=== PATIENT | male | born 1955 | race Caucasian/White ===

== ENCOUNTER 2019-10-21 02:53 | Inpatient (IN) | payer MEDICARE ==
[2019-10-21] MEDS ORDERED: Albuterol/Ipratropium NEB.SOL* Albuterol 2.5 MG/Ipratropium 0.5 MG 3 ML ONE (03:13)
[2019-10-21] MEDS ORDERED: Magnesium Sulfate 2 GM IV* 2 GM/50 ML BAG IVPB ONE (03:14)
[2019-10-21] MEDS ORDERED: Lactated Ringers 1000 ML Bag* 1,000 ML IV ONE ×2 (03:14→03:16)
[2019-10-21] MEDS ORDERED: Dexamethasone IV* 4 MG/ML 5 ML VIAL (20 MG) IVPB ONE (03:14)
--- NOTE | 2019-10-21 03:30 | ED ---
Influenza-Like Illness - HPI Summary HPI Summary: This pt is a 64 Y/O M presenting to [facility] with a CC of influenza-like symptoms. He states that he got his influenza vaccine in May. He was watching his nephew for a couple of days when he had the flu and then the pt became sick as well. He states that he has had a persistent cough for the past week and is currently SOB and has a fever with chills. He denies any CP or N/V. He states that there have been no alleviating factors for his symptoms and states that the Advair has not been helping much throughout the day. He states that his condenser at home was increasing his headache and states that he was unable to use it. He has a PMHx of chronic asthma and DM type 2 that is controlled with diet. He states that he has no SHx of smoking. He denies any PMHx of DVTs or blood disorders in his family. - History of Current Complaint Chief Complaint: EDRespiratoryDistress Time Seen by Provider: 10/21/19 03:04 Hx Obtained From: Patient Onset/Duration: Sudden Onset, Lasting Weeks - 1, Still Present Severity: Moderate Associated Signs & Symptoms: Negative - CP or N/V, Fever, Nasal Congestion, Headache Related Hx: Possible Flu/Infectious Exposure - nephew - Allergy/Home Medications Allergies/Adverse Reactions: Allergies Allergy/AdvReac Type Severity Reaction Status Date / Time No Known Allergies Allergy Verified 10/21/19 03:02 Home Medications: Home Medications Fluticasone-Salmeterol 250-50* [Advair Diskus 250-50*] 2 inh INH BID 10/21/19 [ History Confirmed 10/21/19] PMH/Surg Hx/FS Hx/Imm Hx Previously Healthy: Yes Endocrine/Hematology History: Reports: Hx Diabetes - type 2 Cardiovascular History: Denies: Hx Hypertension Respiratory History: Reports: Hx Asthma - Cancer History Hx Chemotherapy: No Hx Radiation Therapy: No - Surgical History Surgical History: None - Immunization History Date of Influenza Vaccine: May 2019 Immunizations Up to Date: Yes Infectious Disease History: No Infectious Disease History: Denies: Traveled Outside the [place] in Last 30 Days - Family History Known Family History: Positive: Diabetes - Social History Occupation: Retired Lives: Alone Alcohol Use: None Hx Substance Use: No Substance Use Type: Reports: None Hx Tobacco Use: No Smoking Status (MU): Never Smoked Tobacco Review of Systems Positive: Fever, Chills Negative: Chest Pain Positive: Shortness Of Breath Negative: Vomiting, Nausea Positive: Headache All Other Systems Reviewed And Are Negative: Yes Physical Exam - Summary Physical Exam Summary: Constitutional: Well-developed, Well-nourished, Alert. (-) Distressed, diaphoretic Skin: Warm, Dry HENT: Normocephalic; Atraumatic Eyes: Conjunctiva normal Neck: Musculoskeletal ROM normal neck. (-) JVD, (-) Stridor, (-) Tracheal deviation Cardio: Rhythm regular, rate tachycardic, Heart sounds normal; Intact distal pulses; The pedal pulses are 2+ and symmetric. Radial pulses are 2+ and symmetric. labored breathing, Pulmonary/Chest wall: Effort tachypnic, (-) Respiratory distress, (-) Wheezes, ( -) Rales Abd: Soft, (-) tenderness, obese stomach, (-) Guarding, (-) Rebound Musculoskeletal: Chronic venous stasis hyperpigmentation, 1+ bilateral pitting edema Neuro: Alert, Oriented x3 Psych: Mood and affect Normal Triage Information Reviewed: Yes Vital Signs On Initial Exam: Initial Vitals Temp Pulse Resp BP Pulse Ox 96.9 F 129 22 111/73 86 10/21/19 03:02 10/21/19 03:02 10/21/19 03:02 10/21/19 03:02 10/21/19 03:02 Vital Signs Reviewed: Yes Procedures - Sedation Patient Received Moderate/Deep Sedation with Procedure: No Diagnostics - Vital Signs Vital Signs Temp Pulse Resp BP Pulse Ox 10/21/19 03:02 96.9 F 129 22 111/73 86 - Laboratory Result Diagrams: 10/21/19 03:28 10/21/19 03:28 Lab Statement: Any lab studies that have been ordered have been reviewed, and results considered in the medical decision making process. - Radiology CXR Radiology Interpretation Completed By: ED Physician Summary of Radiographic Findings: Diffuse patchiness, R lung has lots of cloudiness that could be hiding in consolidation. Bilateral pleural effusion. Pending offical review. - EKG 0410 Cardiac Rate: Tachycardia - 120 BPM EKG Rhythm: Sinus Tachycardia Summary of EKG Findings: An EKG at 0410 reveals sinus tachycardia at 120 BPM with prolonged QTc at 482. Motion artifact limits reading with a Nonspecific EKG , no STEMI. Interpreted by Dr. Esteban at 0412 10/21/2019. Re-Evaluation - Re-Evaluation First Eval Re-Evaluation Time: 05:10 Change: Unchanged Comment: Pt's blood pressure was mannually taken. He was told of the current POC and is agreeable to addmittance to [facility] for further treatments. Flu Symptom Course/Dx - Course Course Of Treatment: This pt is a 64 Y/O M presenting to [facility] with a CC of influenza-like symptoms. He states that he got his influenza vaccine in May. He was watching his nephew for a couple of days when he had the flu and then the pt became sick as well. He states that he has had a persistent cough for the past week and is currently SOB and has a fever with chills. He denies any CP or N/V. His PE found Chronic venous stasis hyperpigmentation, 1+ bilateral pitting edema. He currently has no wheezing on the exam. He is also tachypnic, tachycardic, diaphoretic, obese stomach, labored breathing, and awake. CXR: Diffuse patchiness, R lung has lots of cloudiness that could be hiding in consolidation. Bilateral pleural effusion. She has abnormal laboratory values in the following test results: WBC, RBC, APTT, INR 1.8, VBG pH of 7.31, VBG pCO2 of 54, VBG pO2 of 96, VBG O2 Saturation of 98.9. An EKG at 0410 reveals sinus tachycardia at 120 BPM with prolonged QTc at 482. Motion artifact limits reading with a Nonspecific EKG, no STEMI. Due to his previous lab tests and tachycardia in conjunction with a troponin of .24 and BNP of 481, the pt does meet sepsis criteria. He will not be treated aggresively with fluids for his tachycardia and possible sepsis due to a potential new onset of CHF and the ability for fluid overload. He has a blood pressure of 98/69. He will be admitted to Dr. Akers, hospitalist, for further treatment and work up. He will be diagnosed with COPD exacerbation secondary to PNA, new onset CHF, and sepsis. - Diagnoses Provider Diagnoses: COPD exacerbation, PNA (pneumonia), New onset of congestive heart failure, Sepsis - Physician Notifications Discussed Care Of Patient With: Meir Akers Time Discussed With Above Provider: 05:10 Instructed by Provider To: Admit As Inpatient Admit/Transition Orders Completed By ED Provider: Yes Discharge ED - Sign-Out/Discharge Documenting (check all that apply): Patient Departure - admitted - Discharge Plan Condition: Good Disposition: ADMITTED TO [facility] Referrals: Butch Moore MD [Primary Care Provider] - - Billing Disposition and Condition Condition: GOOD Disposition: Admitted to [facility] - Attestation Statements Document Initiated by Scribe: Yes Documenting Scribe: Yoseph Jolley Provider For Whom Scribe is Documenting (Include Credential): Jason Esteban MD Scribe Attestation: Yoseph Salinas, scribed for Jason Esteban MD on 10/21/19 at 0602. Scribe Documentation Reviewed: Yes Provider Attestation: The documentation as recorded by the [facility] [place] accurately reflects the service I personally performed and the decisions made by me, Jason Esteban MD Status of Scribe Document: Viewed
[2019-10-21 03:44] LABS: Hematocrit 56 % (42-52); Hemoglobin 18.8 g/dL (14.0-18.0); Mean Corpuscular HGB Conc 33 g/dL (31-36); Mean Corpuscular Hemoglobin 29 pg (27-31); Mean Corpuscular Volume 88 fL (80-94); Mean Platelet Volume 9.1 fL (7.4-10.4); Platelet Count 251 10^3/uL (150-450); Red Blood Count 6.41 10^6 /uL (4.18-5.48); Red Cell Distribution Width 16 % (10-15); White Blood Count 33.9 10^3/uL (3.5-10.8)
[2019-10-21 03:54] LABS: Activated Partial Thrombo Time 38.8 seconds (26.0-38.0); INR 1.81 (0.82-1.09)
[2019-10-21] MEDS ORDERED: cefTRIAXone(*) 1 GM in NS 0.9% 50 ML* 50 ML IVPB ONE (03:54)
[2019-10-21] MEDS ORDERED: Azithromycin 500 mg/250 ml NS 500 MG/250 ML BAG IVPB ONE (03:54)
[2019-10-21 04:01] LABS: Troponin I 0.24 ng/mL (<0.03)
[2019-10-21 04:22] LABS: Anion Gap 13 mmol/L (2-11); CO2 Carbon Dioxide 27 mmol/L (22-32); Calcium 9.3 mg/dL (8.6-10.3); Chloride 97 mmol/L (101-111); Potassium 3.8 mmol/L (3.5-5.0); Sodium 137 mmol/L (135-145)
[2019-10-21 04:26] LABS: ABS Lymphocytes 0.6 10^3/ul (1.0-4.8); ABS Monocytes 2.3 10^3/ul (0-0.8); Lymphocyte % 1.8 %
[2019-10-21 04:28] LABS: BUN/Creatinine Ratio 18.9 (8-20); Blood Urea Nitrogen 18 mg/dL (6-24); EGFR Non-African American 79.3 (>60); Glucose 137 mg/dL (70-100)
[2019-10-21] MEDS ORDERED: Lactated Ringers 1000 ML Bag* 1,000 ML IV SCH (06:00)
[2019-10-21] MEDS ORDERED: Albuterol/Ipratropium NEB.SOL* Albuterol 2.5 MG/Ipratropium 0.5 MG 3 ML INH PRN (06:12)
[2019-10-21] MEDS ORDERED: Ondansetron INJ* 2 MG/ML VIAL IV PRN (06:12)
[2019-10-21] MEDS ORDERED: Acetaminophen TAB* 325 MG PO PRN (06:12)
[2019-10-21] MEDS: Albuterol/Ipratropium NEB.SOL* Albuterol 2.5 MG/Ipratropium 0.5 MG 3 ML INH SCH ×5 (06:30→11:23)
--- NOTE | 2019-10-21 06:35 | HP ---
History of Present Illness - History of Present Illness Reason for Visit: SOB, Cough, leg swelling History of Present Illness: 64 yo Male with PMHx significant for Morbid obesity, Chronic persistent Asthma, diabetes 2 controlled with diet and no medication presented with worsening SOB, fever, wheezing for the past 1- 2weeks. Said he was baby sitting his grandchild who had the Flu and 2 days he and his got the flu as well. He has persistent cough and SOB for the past 1 week. There was associated fever which has subsided. He denied nausea, vomiting, chest pain. He said he noticed increased swelling of his legs and cough is persistent. he has been using his inhaler more without relief. He denied ever smoked. - Past Medical History Pulmonary: Asthma Endocrine: Other - Prediabetes - Past Surgical History Past Surgical History: Cholecystectomy - Past Family History Family History: Cancer, Other - Dad--Alcoholic, smoker; Mom Lung cancer, Bone cancer, Sister and brother --Alcoholics - Past Social History Smoke: No Alcohol: Rare Drugs: None Lives: With Family Domestic Violence: Negative Review of Systems - Measurements Intake and Output: Intake and Output Last 24 Hours 10/18/19 10/19/19 10/20/19 10/21/19 06:59 06:59 06:59 06:59 Weight 122.47 kg - Review of Systems Constitutional Symptoms: Positive: Fever Dermatology: Positive: Normal HEENT: Positive: Normal Eyes: Positive: Normal Thyroid: Positive: Normal Pulmonary: Positive: Cough, Wheezing, Shortness of Breath, Asthma Cardiology: Positive: Shortness of Breath, Edema Gastroenterology: Positive: Normal Genital - Urinary: Negative: Hematuria, Polyuria Genitourinary - Male: Negative: Prostatism Endocrinology: Positive: Obesity Hematologic/Lymphatic: Negative: Anemia Neurology: Negative: Diplopia, Dizziness, Change in Speech, Change in Walking Psychiatry: Negative: Depression, Anxiety Allergic/Immunologic: Positive: Asthma Objective Active Medications: Acetaminophen (Tylenol Tab*) 650 mg PO Q4H PRN PRN Reason: PAIN - MILD Albuterol/Ipratropium (Duoneb (Albuterol 2.5 Mg/Ipratropium 0.5 Mg)) 1 neb INH Q20M [facility] Albuterol/Ipratropium (Duoneb (Albuterol 2.5 Mg/Ipratropium 0.5 Mg)) 1 neb INH [id number] AWAKE PRN PRN Reason: sob/wheexing Docusate Sodium (Colace Cap*) 100 mg PO BID [facility] Heparin Sodium (Porcine) (Heparin Vial(*)) 5,000 units SUBCUT Q8HR [facility] Lactated Ringer's (Lactated Ringers 1000 Ml Bag*) 1,000 mls @ 75 mls/hr IV PER RATE [facility] Azithromycin (Zithromax 500 Mg/250 Ml) 500 mg in 250 mls @ 250 mls/hr IVPB Q24H [facility] Ceftriaxone Sodium 1 gm/ (Sodium Chloride) 50 mls @ 100 mls/hr IVPB Q24H [facility] Sodium Chloride (Ns 0.9% 1000 Ml) 1,000 mls @ 75 mls/hr IV PER RATE [facility] Ondansetron HCl (Zofran Inj*) 4 mg IV Q4H PRN PRN Reason: NAUSEA/VOMITING Fluticasone/Salmeterol (Advair Diskus 250-50*) puff INH BID [facility] Vital Signs - 8 hr 10/21/19 10/21/19 10/21/19 03:01 03:02 03:27 Temperature 96.9 F Pulse Rate 129 128 Respiratory 20 22 19 Rate Blood Pressure 111/73 111/73 (mmHg) O2 Sat by Pulse 86 87 Oximetry 10/21/19 10/21/19 10/21/19 03:28 03:34 03:37 Temperature Pulse Rate 126 126 123 Respiratory 24 19 21 Rate Blood Pressure 100/69 88/68 96/69 (mmHg) O2 Sat by Pulse 89 88 91 Oximetry 10/21/19 10/21/19 10/21/19 03:52 04:01 04:26 Temperature Pulse Rate 120 120 119 Respiratory 21 52 20 Rate Blood Pressure 92/69 98/69 (mmHg) O2 Sat by Pulse 91 90 90 Oximetry 10/21/19 10/21/19 10/21/19 05:01 05:28 05:44 Temperature Pulse Rate 120 117 Respiratory 17 20 19 Rate Blood Pressure 98/63 93/63 (mmHg) O2 Sat by Pulse 89 91 Oximetry 10/21/19 10/21/19 05:58 06:00 Temperature Pulse Rate 115 114 Respiratory 16 24 Rate Blood Pressure 93/64 (mmHg) O2 Sat by Pulse 90 91 Oximetry Appearance: Obese, awake, alert, in respiratory distress Eyes: No Scleral Icterus, PERRLA Ears/Nose/Mouth/Throat: NL Teeth, Lips, Gums, Mucous Membranes Moist Neck: NL Appearance and Movements; NL JVP, No Thyroid Enlargement, Masses Respiratory: Symmetrical Chest Expansion and Respiratory Effort, - - decreased breath sounds, bibasilar crackles, mild wheezing Cardiovascular: NL Sounds; No Murmurs; No JVD, RRR Abdominal: NL Sounds; No Tenderness; No Distention, No Hepatosplenomegaly, - - Obese Lymphatic: No Cervical Adenopathy Extremities: No Clubbing, Cyanosis Skin: No Rash or Ulcers Neurological: Alert and Oriented x 3 Result Diagrams: 10/21/19 03:28 10/21/19 03:28 Assess/Plan/Problems-Billing Assessment: 64 yo Male with PMHx significant for Morbid obesity, Chronic persistent Asthma, diabetes 2 controlled with diet and no medication presented with: - Patient Problems (1) CHF (congestive heart failure) Current Visit: Yes Status: Acute Code(s): I50.9 - HEART FAILURE, UNSPECIFIED SNOMED Code(s): 67154453 Comment: Admit medicine--tele Cardiac enzymes; elevated trops probably due to demand ischemia Echocardiogram Will hold diuresis for now--patient dehydrated with soft/low BP Will start diuresis when patient stabilizes, Will monitor Daily weighing FU AM lab Cardiology consult (2) Asthma exacerbation attacks Current Visit: Yes Status: Acute Comment: Duonebs as needed for SOB/wheezing c/w home inhaler (3) Pneumonia and influenza Current Visit: Yes Status: Acute Comment: Will start IV Ceftriaxone 1 g daily and IV Azithromycin to cover the atypicals FU AM lab and trend wbc (4) Diabetes Current Visit: Yes Status: Acute Code(s): E11.9 - TYPE 2 DIABETES MELLITUS WITHOUT COMPLICATIONS SNOMED Code(s): 64829730 Comment: ISS Diabetic diet and exercise FU HgbA1C (5) Obesities, morbid Current Visit: Yes Status: Acute Code(s): E66.01 - MORBID (SEVERE) OBESITY DUE TO EXCESS CALORIES SNOMED Code(s): 695719779 Comment: Diet and exercise reiterated (6) Full code status Current Visit: Yes Status: Acute Code(s): Z78.9 - OTHER SPECIFIED HEALTH STATUS SNOMED Code(s): 589387660 (7) DVT prophylaxis Current Visit: Yes Status: Acute Code(s): Z29.9 - ENCOUNTER FOR PROPHYLACTIC MEASURES, UNSPECIFIED SNOMED Code(s): 269775557 Comment: Heparin Status and Disposition: Admit to medicine--Tele Fair
[2019-10-21 07:02] LABS: Influenza A Molecular Negative (Negative); Influenza B Molecular Negative (Negative)
[2019-10-21] MEDS: Docusate CAP* 100 MG PO SCH ×2 (08:56→20:13)
[2019-10-21] MEDS: Heparin VIAL(*) 5000 UNITS/ML VIAL (FIVE THOUSAND) SUBCUT SCH ×3 (08:56→20:13)
[2019-10-21] MEDS ORDERED: Mometasone/Formoter 200/5 MDI INH SCH (09:00)
--- NOTE | 2019-10-21 10:45 | PN ---
Subjective Date of Service: 10/21/19 Interval History: Patient reports that he is has had worsening shortness of breath since exposure to sick grandchild approx. 2 weeks ago. Patient reports uses oxygen at home as needed. Patient reports that he manages at home with Advair and albuterol inhaler for which he orders from [place]. Reports that he uses albuterol inhaler as needed but sometimes up to 10 times a day. Denies chest pain. Denies n/v/d, denies abd pain . Patient is refusing medications and breathing treatments. Patient refusing ABG after several discussions on need for ABG. Has threatened to leave AMA several times today. Requesting to have home inhalers at the bedside. Patient is currently requiring 15 liters of 02 via face mask, is able to speak in full sentences and does not have any work of breathing at this time. Labs reviewed from this AM- patient severe sepsis as evidence by hypotension on admission, elevated wbc's. tachycardia and known source of pneumonia.- was given azithromycin and ceftriaxone - lactic acid ordered Family History: Unchanged from Admission Social History: Unchanged from Admission Past Medical History: Unchanged from Admission Objective Active Medications: Acetaminophen (Tylenol Tab*) 650 mg PO Q4H PRN PRN Reason: PAIN - MILD Albuterol/Ipratropium (Duoneb (Albuterol 2.5 Mg/Ipratropium 0.5 Mg)) 1 neb INH RT.[id number] AWAKE PRN PRN Reason: sob/wheexing Docusate Sodium (Colace Cap*) 100 mg PO BID [facility] Last Admin: 10/21/19 08:56 Dose: Not Given Heparin Sodium (Porcine) (Heparin Vial(*)) 5,000 units SUBCUT Q8HR [facility] Last Admin: 10/21/19 08:56 Dose: Not Given Azithromycin (Zithromax 500 Mg/250 Ml) 500 mg in 250 mls @ 250 mls/hr IVPB Q24H [facility] Ceftriaxone Sodium 1 gm/ (Sodium Chloride) 50 mls @ 100 mls/hr IVPB Q24H [facility] Sodium Chloride (Ns 0.9% 1000 Ml) 1,000 mls @ 75 mls/hr IV PER RATE [facility] Mometasone Furoate/Formoterol Fumar (Dulera 200/5 Mdi*) 2 puff INH BID [facility] Ondansetron HCl (Zofran Inj*) 4 mg IV Q4H PRN PRN Reason: NAUSEA/VOMITING Vital Signs - 8 hr 10/21/19 10/21/19 10/21/19 03:01 03:02 03:27 Temperature 96.9 F Pulse Rate 129 128 Respiratory 20 22 19 Rate Blood Pressure 111/73 111/73 (mmHg) O2 Sat by Pulse 86 87 Oximetry 10/21/19 10/21/19 10/21/19 03:28 03:34 03:37 Temperature Pulse Rate 126 126 123 Respiratory 24 19 21 Rate Blood Pressure 100/69 88/68 96/69 (mmHg) O2 Sat by Pulse 89 88 91 Oximetry 10/21/19 10/21/19 10/21/19 03:52 04:01 04:26 Temperature Pulse Rate 120 120 119 Respiratory 21 52 20 Rate Blood Pressure 92/69 98/69 (mmHg) O2 Sat by Pulse 91 90 90 Oximetry 10/21/19 10/21/19 10/21/19 05:01 05:28 05:44 Temperature Pulse Rate 120 117 Respiratory 17 20 19 Rate Blood Pressure 98/63 93/63 (mmHg) O2 Sat by Pulse 89 91 Oximetry 10/21/19 10/21/19 10/21/19 05:58 06:00 06:13 Temperature Pulse Rate 115 114 115 Respiratory 16 24 21 Rate Blood Pressure 93/64 99/66 (mmHg) O2 Sat by Pulse 90 91 90 Oximetry 10/21/19 10/21/19 10/21/19 06:28 06:31 06:44 Temperature Pulse Rate 115 113 114 Respiratory 14 21 20 Rate Blood Pressure 97/64 107/66 (mmHg) O2 Sat by Pulse 90 89 89 Oximetry 10/21/19 10/21/19 10/21/19 06:59 07:00 07:14 Temperature Pulse Rate 115 111 112 Respiratory 22 17 23 Rate Blood Pressure 109/61 99/63 (mmHg) O2 Sat by Pulse 92 91 91 Oximetry 10/21/19 10/21/19 10/21/19 07:29 07:41 07:44 Temperature Pulse Rate 109 111 112 Respiratory 23 18 16 Rate Blood Pressure 88/65 96/65 89/64 (mmHg) O2 Sat by Pulse 90 91 92 Oximetry 10/21/19 10/21/19 10/21/19 07:46 07:58 08:00 Temperature Pulse Rate 110 107 107 Respiratory 15 21 22 Rate Blood Pressure 110/70 100/65 (mmHg) O2 Sat by Pulse 92 91 92 Oximetry 10/21/19 10/21/19 08:20 08:30 Temperature 98.4 F 97.5 F Pulse Rate 111 112 Respiratory 17 22 Rate Blood Pressure 100/65 112/76 (mmHg) O2 Sat by Pulse 92 91 Oximetry Oxygen Devices in Use Now: Simple Face Mask Appearance: alert, sitting in his hospital with o2 via face mask, no respirtory distress Eyes: No Scleral Icterus Ears/Nose/Mouth/Throat: Clear Oropharnyx, Mucous Membranes Moist Neck: NL Appearance and Movements; NL JVP Respiratory: Symmetrical Chest Expansion and Respiratory Effort, - - exp. wheezes in the upper lobes, very diminished lower lobes bilat Cardiovascular: NL Sounds; No Murmurs; No JVD Abdominal: NL Sounds; No Tenderness; No Distention Extremities: No Clubbing, Cyanosis, - - bilat lower legs with +2 pitting edema Skin: No Rash or Ulcers Neurological: Alert and Oriented x 3 Nutrition: Taking PO's Result Diagrams: 10/21/19 03:28 10/21/19 03:28 Assess/Plan/Problems-Billing Assessment: 64 yo Male with PMHx significant for Morbid obesity, Chronic persistent Asthma, diabetes 2 controlled with diet and no medication presented with: - Patient Problems (1) Sepsis Current Visit: Yes Status: Acute Comment: severe sepsis related to underlying pneumonia as evidence by elevated WBC's, tachycardia, hypoxia and known source of bilat PNA, elevated troponin, hypotension on arrival to ER - will continue IVF - conitnue ceftriaxone and azithromycin - blood cultures pending - will send urine for legionella and strep (2) Pneumonia and influenza Current Visit: Yes Status: Acute Comment: with hypoxic respirtory failure requiring o2 at 15 liters will titrate as able conitnue IV Ceftriaxone 1 g daily and IV Azithromycin - blood cultures - urine for legionella and strep - patient met severe sepsis on admission -lactic acid ordered and elevated- 3.4 - ivf fluid bolus given 30cc/kg- will trend lactic acid - will repeat CBC in the AM - contiue o2 as needed for maintian sats at 90-92% (3) Elevated troponin Current Visit: Yes Status: Acute Code(s): R79.89 - OTHER SPECIFIED ABNORMAL FINDINGS OF BLOOD CHEMISTRY SNOMED Code(s): 678140762 Comment: Likely related to demand ischemia from underlying severe sepsis from bilat pneumonia - CTA - negative for PE, showed bilat PNA right greater than left - will give ASA 324mg - cardiology consulted - will trend troponins and repeat EKG in the AM (4) Asthma exacerbation attacks Current Visit: Yes Status: Acute Comment: Duonebs as needed for SOB/wheezing - continue home inhaler - o2 as needed - ABG ordered - refused (5) Diabetes Current Visit: Yes Status: Acute Code(s): E11.9 - TYPE 2 DIABETES MELLITUS WITHOUT COMPLICATIONS SNOMED Code(s): 43200698 Comment: will monitor - consistent carbohydrate diet (6) Obesities, morbid Current Visit: Yes Status: Acute Code(s): E66.01 - MORBID (SEVERE) OBESITY DUE TO EXCESS CALORIES SNOMED Code(s): 131322544 Comment: Diet and exercise reiterated (7) DVT prophylaxis Current Visit: Yes Status: Acute Code(s): Z29.9 - ENCOUNTER FOR PROPHYLACTIC MEASURES, UNSPECIFIED SNOMED Code(s): 817915836 Comment: Heparin (8) Full code status Current Visit: Yes Status: Acute Code(s): Z78.9 - OTHER SPECIFIED HEALTH STATUS SNOMED Code(s): 288430577 Status and Disposition: Admit to medicine--Tele Fair
[2019-10-21] MEDS ORDERED: Albuterol HFA INHALER* 8 gm MDI INH PRN (11:00)
[2019-10-21] MEDS ORDERED: FLUTICASONE SALMETEROL INH SCH (11:09)
[2019-10-21 11:22] LABS: ALT 24 U/L (7-52); AST 22 U/L (13-39); Albumin 3.7 g/dL (3.2-5.2); Alkaline Phosphatase 125 U/L (34-104); Globulin 3.6 g/dL (2-4); Indirect Bilirubin 1.1 mg/dL (0.3-1.0); Total Protein 7.3 g/dL (6.4-8.9)
[2019-10-21] MEDS ORDERED: SODIUM CHLORIDE IV ONE (11:45)
[2019-10-21] MEDS ORDERED: [UNRECOGNIZED DRUG - OTHER] IV ONE (11:45)
[2019-10-21 12:30] LABS: C Reactive Protein 308.32 mg/L (<8.01)
--- NOTE | 2019-10-21 12:46 | ECHO ---
*[facility]* [place] [address] Fax #: [phone] Transthoracic Echocardiogram Patient: Daniel Mackey : 1955 Study Date: 10/21/2019 Age: 64 Gender: M HR: 107 bpm Height: 70 in /177.8 cm BSA: 2.38 m^2 Weight: 272.4 lb /123.8 kg BMI: 39.2 kg/m^2 *Yard Pipe Grader: * Kassidy Okeefe RDCS RN *Referring Physician: * Meir Akers *Reading Physician: * Krzysztof Lopez MD Indications: Congestive Heart Failure. History: Asthma. Obstructive sleep apnea. Risk factors: Diabetes mellitus. Morbidly obese. Conclusions Summary: - Procedure narrative: The study was technically limited due to body habitus and limited positioning. The patient refused the use of Definity to enhance imaging. - Left ventricle: Systolic function is at the lower limits of normal. The estimated ejection fraction is 50-55%. Regional wall motion abnormalities cannot be excluded due to poor apical imaging without Definity. - Right ventricle: The cavity size is mildly to moderately dilated in some views. Wall thickness is moderately increased. Systolic function is low normal. - Mitral valve: There is no significant regurgitation. - Aortic valve: There is no evidence of stenosis. - Tricuspid valve: There is trace regurgitation. - Pulmonary arteries: Systolic pressure cannot be accurately estimated. - Compared to study of 09/26/10, the left ventricle function appears the same. THe right ventricle dilation is new. Study data: Transthoracic echocardiogram. Procedure: Transthoracic echocardiography was performed. Overall image quality was adequate. Apical imaging was poor. The study was technically limited due to body habitus and limited positioning. The patient refused the use of Definity to enhance imaging. Complete 2D, spectral Doppler, and color flow Doppler. Location: Bedside. Patient status: Inpatient. Patient room number: 446-02. Rhythm: Tachycardia. Findings Left ventricle: The cavity size is normal. Wall thickness is mildly to moderately increased. Systolic function is at the lower limits of normal. The estimated ejection fraction is 50-55%. Regional wall motion abnormalities cannot be excluded due to poor apical imaging without Definity. There is no consistent Doppler evidence of clinically significant diastolic dysfunction. Right ventricle: The cavity size is mildly to moderately dilated in some views. Wall thickness is moderately increased. Systolic function is low normal. Left atrium: The atrium is normal in size. Right atrium: The atrium is normal in size. Mitral valve: The leaflets are mildly thickened. There is no evidence of stenosis. There is no significant regurgitation. Aortic valve: The valve is trileaflet. The leaflets are mildly thickened. There is no evidence of stenosis. There is no significant regurgitation. Tricuspid valve: The leaflets are normal thickness. There is trace regurgitation. Pulmonic valve: The leaflets are normal thickness. There is no evidence of stenosis. There is no significant regurgitation. Aorta: Aortic root: The aortic root is not dilated. Ascending aorta: The ascending aorta is not dilated. Aortic arch: The aortic arch is not visualized. Pericardium: There is no pericardial effusion. Pulmonary arteries: Not well visualized. Systolic pressure cannot be accurately estimated. Systemic veins: Inferior vena cava: The vessel is dilated. There is (>= 50%) respiratory change in the IVC dimension. Measurements Left ventricle Value Ref Right atrium Value Ref NAIN, LAX 4.9 cm 4.2 - 5.8 ML dim, ES, A4C 4.2 cm 2.6 - 4.4 ESD, LAX 3.6 cm 2.5 - 4.0 SI dim, ES, A4C 5.1 cm 3.4 - 5.3 FS, LAX 25 % 25 - 43 Estimated RAP 8 mm Hg --------- PW, ED (H) 1.2 cm 0.6 - 1.0 IVS/PW, ED 1.04 Aortic valve Value Ref E', lat lata, TDI 11.1 cm/sec >=10.0 Lata diam, ED 2.1 cm --- ------ E/e', lat lata, 8 Peak v, S 1.3 m/sec ------ --- TDI VTI, S 23.0 cm --------- E', med lata, TDI 10.6 cm/sec >=7.0 Mean grad, S 4.0 mm Hg --- ------ E/e', med lata, 8 Peak grad, S 7.0 mm Hg ------ --- TDI LVOT/AV, VTI ratio 0.82 --------- E', avg, TDI 10.9 cm/sec E/e', avg, TDI 8 <=14 Mitral valve Value Ref Peak E 0.86 m/sec --------- LVOT Value Ref Peak A 0.83 m/sec --------- Peak clement, S 1.1 m/sec Decel time 254 ms --------- VTI, S 18.9 cm Peak grad, D 3.0 mm Hg --------- Peak grad, S 5 mm Hg Peak E/A ratio 1 --------- Mean grad, S 3 mm Hg Aortic root Value Ref Ventricular septum Value Ref Root diam 3.6 cm <4.4 IVS, ED (H) 1.3 cm 0.6 - 1.0 Ascending aorta Value Ref Right ventricle Value Ref AAo AP diam, S 3.5 cm --------- AW thickness, ED (H) 1.1 cm 0.1 - 0.5 NAIN, LAX 3.9 cm Inferior vena cava Value Ref NAIN minor ax, (H) 5.2 cm 1.9 - 3.5 Diam 2.4 cm --------- A4C mid Left atrium Value Ref AP dim, ES 3.90 cm 3.00 - 4.00 ML dim, A4C 4.1 cm SI dim, A4C 4.9 cm Vol/bsa, ES, 1-p 26 ml/m^2 12 - 37 A4C Vol/bsa, ES, A/L 29 ml/m^2 16 - 34 Legend: (L) and (H) evette values outside specified reference range. Prepared and electronically signed by Krzysztof Lopez MD 10/21/2019 12:45
[2019-10-21] MEDS ORDERED: Iodixanol* (CONTRAST) 320 MG/ML 100 ML SDV IV ONE (13:56)
[2019-10-21] MEDS: NS 0.9% 1000 ML** 1,000 ML IV SCH (16:47)
[2019-10-21] MEDS: FLUTICASONE INH SCH (20:15)
[2019-10-21] MEDS: SALMETEROL INH SCH (20:15)
[2019-10-21] MEDS: [UNRECOGNIZED DRUG - OTHER] PO PRN ×2 (20:40→22:50)
[2019-10-21] MEDS ORDERED: Aspirin 81 mg CHEW TAB* 81 MG TAB.CHEW PO ONE (21:31)
[2019-10-21] MEDS ORDERED: Aspirin 81 mg CHEW TAB* 81 MG TAB.CHEW PO SCH (22:00)
[2019-10-22] MEDS: Heparin VIAL(*) 5000 UNITS/ML VIAL (FIVE THOUSAND) SUBCUT SCH ×3 (05:02→21:00)
[2019-10-22] MEDS: [UNRECOGNIZED DRUG - OTHER] PO PRN ×2 (05:10)
[2019-10-22] MEDS: cefTRIAXone(*) 1 GM in NS 0.9% 50 ML* 50 ML IVPB SCH (05:23)
[2019-10-22] MEDS: NS 0.9% 1000 ML** 1,000 ML IV SCH (05:23)
[2019-10-22] MEDS: Azithromycin 500 mg/250 ml NS 500 MG/250 ML BAG IVPB SCH (06:07)
[2019-10-22 06:50] LABS: Hematocrit 48 % (42-52); Hemoglobin 16.1 g/dL (14.0-18.0); Mean Corpuscular HGB Conc 34 g/dL (31-36); Mean Corpuscular Hemoglobin 29 pg (27-31); Mean Corpuscular Volume 87 fL (80-94); Mean Platelet Volume 9.1 fL (7.4-10.4); Platelet Count 238 10^3/uL (150-450); Red Blood Count 5.49 10^6 /uL (4.18-5.48); Red Cell Distribution Width 16 % (10-15); White Blood Count 27.5 10^3/uL (3.5-10.8)
[2019-10-22 06:55] LABS: ABS Lymphocytes 0.7 10^3/ul (1.0-4.8); ABS Monocytes 1.6 10^3/ul (0-0.8); ABS Neutrophils 25.2 10^3/ul (1.5-7.7); Lymphocyte % 2.4 %
[2019-10-22 07:05] LABS: BUN/Creatinine Ratio 35.6 (8-20); Calcium 8.7 mg/dL (8.6-10.3); EGFR African American 166.3 (>60); EGFR Non-African American 137.4 (>60); HDL Cholesterol 15.9 mg/dL; Potassium 4.7 mmol/L (3.5-5.0)
[2019-10-22 07:26] LABS: TSH (Thyroid Stimulating Horm) 0.51 mcIU/mL (0.34-5.60)
[2019-10-22] MEDS: Docusate CAP* 100 MG PO SCH ×3 (07:27→20:11)
[2019-10-22] MEDS: FLUTICASONE INH SCH ×2 (07:28→20:11)
[2019-10-22] MEDS: SALMETEROL INH SCH ×2 (07:28→20:11)
--- NOTE | 2019-10-22 10:16 | PN ---
<SidCarmen - Last Filed: 10/22/19 10:18> Subjective Date of Service: 10/22/19 - troponin elevation Interval History: Patient reports SOB states it has improved since admission. No c/o chest pain, no c/o palpitations. Does report + edema. No other complaints Medications Active Medications: Acetaminophen (Tylenol Tab*) 650 mg PO Q4H PRN PRN Reason: PAIN - MILD Albuterol/Ipratropium (Duoneb (Albuterol 2.5 Mg/Ipratropium 0.5 Mg)) 1 neb INH [id number] AWAKE PRN PRN Reason: sob/wheexing Last Admin: 10/21/19 10:45 Dose: 1 neb Docusate Sodium (Colace Cap*) 100 mg PO BID [facility] Last Admin: 10/22/19 07:27 Dose: Not Given Heparin Sodium (Porcine) (Heparin Vial(*)) 5,000 units SUBCUT Q8HR [facility] Last Admin: 10/22/19 05:02 Dose: Not Given Azithromycin (Zithromax 500 Mg/250 Ml) 500 mg in 250 mls @ 250 mls/hr IVPB Q24H [facility] Last Admin: 10/22/19 06:07 Dose: 250 mls/hr Ceftriaxone Sodium 1 gm/ (Sodium Chloride) 50 mls @ 100 mls/hr IVPB Q24H [facility] Last Admin: 10/22/19 05:23 Dose: 100 mls/hr Pto: Salbutamol (Inhalation 100 Mcg) 100 mcg PO Q4HR PRN PRN Reason: SHORTNESS OF BREATH Last Admin: 10/22/19 05:10 Dose: 100 mcg Pto: Seroflo ( Fluticasone 125mcg/Salmeterol 25mcg) 2 dose INH BID [facility] Last Admin: 10/22/19 07:28 Dose: Not Given Ondansetron HCl (Zofran Inj*) 4 mg IV Q4H PRN PRN Reason: NAUSEA/VOMITING Objective Vital Signs: Temp Pulse Resp BP Pulse Ox 97.4 F 91 18 123/73 91 10/22/19 03:01 10/22/19 03:01 10/22/19 03:01 10/22/19 03:01 10/22/19 03:01 Oxygen Devices in Use Now: Simple Face Mask Appearance: sitting on edge of bed, appears ill, pleasant A+O x3 Ears/Nose/Mouth/Throat: NL Teeth, Lips, Gums, Mucous Membranes Moist Neck: Trachea Midline, - - unclear JVD Respiratory: - - severely diminished throughout. no retractions Cardiovascular: - - Tachy S1, S2. Regular rate and rhythm no murmur. Extremities: - - 1+ pedal edema noted. Skin: No Rash or Ulcers Neurological: Alert and Oriented x 3 Lines/Tubes/Other Access: Clean, Dry and Intact Peripheral IV Laboratory Results: 10/22/19 06:32 10/22/19 06:32 INR (Anticoag Therapy) 1.81 (0.82-1.09) H 10/21/19 03:28 APTT 38.8 seconds (26.0-38.0) H 10/21/19 03:28 Total Bilirubin 1.60 mg/dL (0.2-1.0) H 10/21/19 03:28 Direct Bilirubin 0.50 mg/dL (0.03-0.18) H 10/21/19 03:28 Indirect Bilirubin 1.1 mg/dL (0.3-1.0) H 10/21/19 03:28 AST 22 U/L (13-39) 10/21/19 03:28 ALT 24 U/L (7-52) 10/21/19 03:28 Alkaline Phosphatase 125 U/L (34-104) H 10/21/19 03:28 B-Natriuretic Peptide 481 pg/mL (<=100) H 10/21/19 03:28 Total Protein 7.3 g/dL (6.4-8.9) 10/21/19 03:28 Albumin 3.7 g/dL (3.2-5.2) 10/21/19 03:28 Globulin 3.6 g/dL (2-4) 10/21/19 03:28 Albumin/Globulin Ratio 1.0 (1-3) 10/21/19 03:28 Triglycerides 113 mg/dL 10/22/19 06:32 Cholesterol 79 mg/dL 10/22/19 06:32 LDL Cholesterol 41 mg/dL 10/22/19 06:32 HDL Cholesterol 15.9 mg/dL 10/22/19 06:32 TSH 0.51 mcIU/mL (0.34-5.60) 10/22/19 06:32 10/21/19 10/21/19 03:28 10:43 Troponin I 0.24 H* 0.10 H* Laboratory Results - last 24 hr 10/21/19 10/21/19 10/21/19 03:28 10:43 10:43 WBC RBC Hgb Hct MCV MCH MCHC RDW Plt Count MPV Neut % (Auto) Lymph % (Auto) Stanley % (Auto) Eos % (Auto) Baso % (Auto) Absolute Neuts (auto) Absolute Lymphs (auto) Absolute Monos (auto) Absolute Eos (auto) Absolute Basos (auto) Absolute Nucleated RBC Nucleated RBC % Sodium 137 Potassium 3.8 Chloride 97 L Carbon Dioxide 27 Anion Gap 13 H BUN 18 Creatinine 0.95 Est GFR ( Amer) 96.0 Est GFR (Non-Af Amer) 79.3 BUN/Creatinine Ratio 18.9 Glucose 137 H Lactic Acid 3.4 H* Calcium 9.3 Total Bilirubin 1.60 H Direct Bilirubin 0.50 H Indirect Bilirubin 1.1 H AST 22 ALT 24 Alkaline Phosphatase 125 H Troponin I 0.24 H* 0.10 H* C-Reactive Protein 308.32 H Total Protein 7.3 Albumin 3.7 Globulin 3.6 Albumin/Globulin Ratio 1.0 Triglycerides Cholesterol LDL Cholesterol HDL Cholesterol TSH 10/21/19 10/21/19 10/21/19 15:15 18:29 22:55 WBC RBC Hgb Hct MCV MCH MCHC RDW Plt Count MPV Neut % (Auto) Lymph % (Auto) Stanley % (Auto) Eos % (Auto) Baso % (Auto) Absolute Neuts (auto) Absolute Lymphs (auto) Absolute Monos (auto) Absolute Eos (auto) Absolute Basos (auto) Absolute Nucleated RBC Nucleated RBC % Sodium Potassium Chloride Carbon Dioxide Anion Gap BUN Creatinine Est GFR ( Amer) Est GFR (Non-Af Amer) BUN/Creatinine Ratio Glucose Lactic Acid 2.3 H* 2.1 H* 1.3 Calcium Total Bilirubin Direct Bilirubin Indirect Bilirubin AST ALT Alkaline Phosphatase Troponin I C-Reactive Protein Total Protein Albumin Globulin Albumin/Globulin Ratio Triglycerides Cholesterol LDL Cholesterol HDL Cholesterol TSH 10/22/19 10/22/19 06:32 06:32 WBC 27.5 H RBC 5.49 H Hgb 16.1 Hct 48 MCV 87 MCH 29 MCHC 34 RDW 16 H Plt Count 238 MPV 9.1 Neut % (Auto) 91.5 Lymph % (Auto) 2.4 Stanley % (Auto) 6.0 Eos % (Auto) 0.0 Baso % (Auto) 0.1 Absolute Neuts (auto) 25.2 H Absolute Lymphs (auto) 0.7 L Absolute Monos (auto) 1.6 H Absolute Eos (auto) 0.0 Absolute Basos (auto) 0.0 Absolute Nucleated RBC 0.0 Nucleated RBC % 0.0 Sodium 138 Potassium 4.7 Chloride 103 Carbon Dioxide 31 Anion Gap 4 BUN 21 Creatinine 0.59 L Est GFR ( Amer) 166.3 Est GFR (Non-Af Amer) 137.4 BUN/Creatinine Ratio 35.6 H Glucose 162 H Lactic Acid Calcium 8.7 Total Bilirubin Direct Bilirubin Indirect Bilirubin AST ALT Alkaline Phosphatase Troponin I C-Reactive Protein Total Protein Albumin Globulin Albumin/Globulin Ratio Triglycerides 113 Cholesterol 79 LDL Cholesterol 41 HDL Cholesterol 15.9 TSH 0.51 Diagnostic Imaging: the same. THe right ventricle dilation is new. Study data: Transthoracic echocardiogram. Procedure: Transthoracic echocardiography was performed. Overall image quality was adequate. Apical imaging was poor. The study was technically limited due to body habitus and limited positioning. The patient refused the use of Definity to enhance imaging. Complete 2D, spectral Doppler, and color flow Doppler. Location: Bedside. Patient status: Inpatient. Patient room number: 446-02. Rhythm: Tachycardia. Findings Left ventricle: The cavity size is normal. Wall thickness is mildly to moderately increased. Systolic function is at the lower limits of normal. The estimated ejection fraction is 50-55%. Regional wall motion abnormalities cannot be excluded due to poor apical imaging without Definity. There is no consistent Doppler evidence of clinically significant diastolic dysfunction. Right ventricle: The cavity size is mildly to moderately dilated in some views. Wall thickness is moderately increased. Systolic function is low normal. Left atrium: The atrium is normal in size. Right atrium: The atrium is normal in size. Mitral valve: The leaflets are mildly thickened. There is no evidence of stenosis. There is no significant regurgitation. Aortic valve: The valve is trileaflet. The leaflets are mildly thickened. There is no evidence of stenosis. There is no significant regurgitation. Tricuspid valve: The leaflets are normal thickness. There is trace regurgitation. Pulmonic valve: The leaflets are normal thickness. There is no evidence of stenosis. There is no significant regurgitation. Aorta: Aortic root: The aortic root is not dilated. Ascending aorta: The ascending aorta is not dilated. Aortic arch: The aortic arch is not visualized. Pericardium: There is no pericardial effusion. Pulmonary arteries: Not well visualized. Systolic pressure cannot be accurately estimated. Systemic veins: Inferior vena cava: The vessel is dilated. There is (>= 50%) respiratory change in the IVC dimension. Measurements This report is only to be considered final once signed by the Provider(s) as displayed in the "<Electronically Signed by >" field (s). Absence of a signature indicates the report is in a draft status and still needs to be finalized. In the event this document was created by someone other than the signing Provider, the individual initiating the document will be listed in the "Entered by:" or "Dictated by:" stinson. EKG Data: 10/22/2019; Sinus rhythm rate 95 with anterolateral TWI and IVCD. Telemetry reviewed; sinus tachycardia 90-110 Assessment/Plan #1 Troponin elevation' Patient presented with SOB and has been treated for sepsis with bilateral pneumonia. Denies having chest pain. Wall motion was not evaluated by echo due to poor apical imaging due to patient refusing definity. He denies having chest pain. ECG reveals new anterolateral TWI since 2011 ECG. Troponin elevation is likely demand base due to sepsis and bilateral pneumonia. He was offered a nuclear stress test prior to discharge if his breathing effort improved however, he states he will not due one and would consider having one outpatient but expressed concern about nuclear portion and risk related to nuclear imaging. He is aware of sudden cardiac without proper risk stratification however, I do believe outpatient risk stratification is reasonable in this clinical setting. Of particular importance is his coagulopathy (INR 1.8) in the setting of not being on OAC. I noted he had other liver abnormalities and ? PLATA noted on CT. 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 would suggest starting ASA 81mg/day. Not on bblocker due to respiratory status. LDL 41 not on statin therapy. Will arrange outpatient follow up with out practice for consideration of outpatient nuclear stress test. #2 Coagulopathy; INR 1.8 with ? PLATA noted on CT and elevated Bilirubin and alk phos. will differ to primary team for evaluation of liver disease. #3 Sepsis with bilateral pneumonia; On IV Ceftriaxone. Patient states breathing is improving. differ to primary team. #4 Diastolic dysfunction; recommend adequate BP control. He would likely benefit from low dose diuretic given + pedal edema, INR elevation ( if related to hepatic congestion). #5 Disposition pending course; Will d/w Dr. Mcnamara. Attending: Valencia Mcnamara <Valencia Mcnamara - Last Filed: 10/22/19 21:40> Medications Active Medications: Acetaminophen (Tylenol Tab*) 650 mg PO Q4H PRN PRN Reason: PAIN - MILD Albuterol/Ipratropium (Duoneb (Albuterol 2.5 Mg/Ipratropium 0.5 Mg)) 1 neb INH [id number] AWAKE PRN PRN Reason: sob/wheexing Last Admin: 10/21/19 10:45 Dose: 1 neb Aspirin (Aspirin 81 Mg Chew Tab*) 81 mg PO DAILY [facility] Docusate Sodium (Colace Cap*) 100 mg PO BID [facility] Last Admin: 10/22/19 20:11 Dose: 100 mg Heparin Sodium (Porcine) (Heparin Vial(*)) 5,000 units SUBCUT Q8HR [facility] Last Admin: 10/22/19 21:00 Dose: Not Given Azithromycin (Zithromax 500 Mg/250 Ml) 500 mg in 250 mls @ 250 mls/hr IVPB Q24H [facility] Last Admin: 10/22/19 06:07 Dose: 250 mls/hr Ceftriaxone Sodium 1 gm/ (Sodium Chloride) 50 mls @ 100 mls/hr IVPB Q24H [facility] Last Admin: 10/22/19 05:23 Dose: 100 mls/hr Pto: Salbutamol (Inhalation 100 Mcg) 100 mcg PO Q4HR PRN PRN Reason: SHORTNESS OF BREATH Last Admin: 10/22/19 05:10 Dose: 100 mcg Pto: Seroflo ( Fluticasone 125mcg/Salmeterol 25mcg) 2 dose INH BID [facility] Last Admin: 10/22/19 20:11 Dose: 1 dose Ondansetron HCl (Zofran Inj*) 4 mg IV Q4H PRN PRN Reason: NAUSEA/VOMITING Objective Vital Signs: Temp Pulse Resp BP Pulse Ox 98.2 F 97 22 124/77 94 10/22/19 19:43 10/22/19 19:43 10/22/19 19:43 10/22/19 19:43 10/22/19 19:43 Laboratory Results: 10/22/19 06:32 10/22/19 06:32 INR (Anticoag Therapy) 1.81 (0.82-1.09) H 10/21/19 03:28 APTT 38.8 seconds (26.0-38.0) H 10/21/19 03:28 Total Bilirubin 1.60 mg/dL (0.2-1.0) H 10/21/19 03:28 Direct Bilirubin 0.50 mg/dL (0.03-0.18) H 10/21/19 03:28 Indirect Bilirubin 1.1 mg/dL (0.3-1.0) H 10/21/19 03:28 AST 22 U/L (13-39) 10/21/19 03:28 ALT 24 U/L (7-52) 10/21/19 03:28 Alkaline Phosphatase 125 U/L (34-104) H 10/21/19 03:28 B-Natriuretic Peptide 481 pg/mL (<=100) H 10/21/19 03:28 Total Protein 7.3 g/dL (6.4-8.9) 10/21/19 03:28 Albumin 3.7 g/dL (3.2-5.2) 10/21/19 03:28 Globulin 3.6 g/dL (2-4) 10/21/19 03:28 Albumin/Globulin Ratio 1.0 (1-3) 10/21/19 03:28 Triglycerides 113 mg/dL 10/22/19 06:32 Cholesterol 79 mg/dL 10/22/19 06:32 LDL Cholesterol 41 mg/dL 10/22/19 06:32 HDL Cholesterol 15.9 mg/dL 10/22/19 06:32 TSH 0.51 mcIU/mL (0.34-5.60) 10/22/19 06:32 10/21/19 10/21/19 03:28 10:43 Troponin I 0.24 H* 0.10 H* Assessment/Plan I saw and examined the patient personally. This evaluation is a cardiology consultation not a progess note. Pt with pneumonia, elevated troponins, no angina on hx. Agree with differential above including demand ischemia vs. possible large vessel disease with metabolic stress. Agree on diuretics. Although pt does not want a chemical stress test he is interested in a TM stress. He has been on coumodin in the past. I recommend aggressive medical management for presumed underlying CAD including BP control as above. Follow up with cardiology (Dr Mcnamara) as out patient, can discuss TM stress or Stress echo when pneumonia has improved.
[2019-10-22 11:26] LABS: Urine Appearance Clear; Urine Bilirubin Negative (Negative); Urine Blood Negative (Negative); Urine Color Yellow; Urine Glucose Negative (Negative); Urine Ketones Negative (Negative); Urine Nitrite Negative (Negative); Urine Protein Negative (Negative); Urine Specific Gravity 1.026 (1.010-1.030); Urine Urobilinogen Negative (Negative)
--- NOTE | 2019-10-22 18:01 | PN ---
Subjective Date of Service: 10/22/19 Interval History: Feeling better, less SOB Denies CP Can walk to bathroom without SOB Family History: Unchanged from Admission Social History: Unchanged from Admission Past Medical History: Unchanged from Admission Objective Active Medications: Acetaminophen (Tylenol Tab*) 650 mg PO Q4H PRN PRN Reason: PAIN - MILD Albuterol/Ipratropium (Duoneb (Albuterol 2.5 Mg/Ipratropium 0.5 Mg)) 1 neb INH [id number] AWAKE PRN PRN Reason: sob/wheexing Last Admin: 10/21/19 10:45 Dose: 1 neb Aspirin (Aspirin 81 Mg Chew Tab*) 81 mg PO DAILY [facility] Docusate Sodium (Colace Cap*) 100 mg PO BID [facility] Last Admin: 10/22/19 07:27 Dose: Not Given Heparin Sodium (Porcine) (Heparin Vial(*)) 5,000 units SUBCUT Q8HR [facility] Last Admin: 10/22/19 14:15 Dose: Not Given Azithromycin (Zithromax 500 Mg/250 Ml) 500 mg in 250 mls @ 250 mls/hr IVPB Q24H [facility] Last Admin: 10/22/19 06:07 Dose: 250 mls/hr Ceftriaxone Sodium 1 gm/ (Sodium Chloride) 50 mls @ 100 mls/hr IVPB Q24H [facility] Last Admin: 10/22/19 05:23 Dose: 100 mls/hr Pto: Salbutamol (Inhalation 100 Mcg) 100 mcg PO Q4HR PRN PRN Reason: SHORTNESS OF BREATH Last Admin: 10/22/19 05:10 Dose: 100 mcg Pto: Seroflo ( Fluticasone 125mcg/Salmeterol 25mcg) 2 dose INH BID [facility] Last Admin: 10/22/19 07:28 Dose: Not Given Ondansetron HCl (Zofran Inj*) 4 mg IV Q4H PRN PRN Reason: NAUSEA/VOMITING Vital Signs - 8 hr 10/22/19 10/22/19 11:15 15:15 Temperature 97.6 F Pulse Rate 98 99 Respiratory 20 20 Rate Blood Pressure 115/65 (mmHg) O2 Sat by Pulse 93 Oximetry Oxygen Devices in Use Now: Simple Face Mask - 10L Appearance: NAD, sitting on edge of bed Eyes: No Scleral Icterus Ears/Nose/Mouth/Throat: NL Teeth, Lips, Gums, Clear Oropharnyx Neck: NL Appearance and Movements; NL JVP, Trachea Midline Respiratory: Symmetrical Chest Expansion and Respiratory Effort, Clear to Auscultation, - - clear Cardiovascular: NL Sounds; No Murmurs; No JVD, RRR Abdominal: NL Sounds; No Tenderness; No Distention, No Hepatosplenomegaly Lymphatic: No Cervical Adenopathy Extremities: - - 1+ LE edema Neurological: Alert and Oriented x 3 Result Diagrams: 10/22/19 06:32 10/22/19 06:32 Microbiology and Other Data: Microbiology 10/21/19 04:00 Aerobic Blood Culture - Preliminary Blood Venous No Growth Day 1 Anaerobic Blood Culture - Preliminary No Growth Day 1 10/21/19 03:59 Aerobic Blood Culture - Preliminary Blood Venous No Growth Day 1 Anaerobic Blood Culture - Preliminary No Growth Day 1 10/21/19 14:03 Legionella Urinary Antigen - Final Urine Negative Legionella Antigen Streptococcus pneumoniae Ag Screen - Final Negative S. pneumo Antigen Assess/Plan/Problems-Billing Assessment: 64 yo Male with PMHx significant for asthma, diabetes 2 controlled with diet and no medication presented with SOB/cough - Patient Problems (1) Pneumonia Comment: CTX/azithro trend WBC improving (2) Chronic respiratory failure with hypoxia Comment: uses between 3-6 L oxygen at home. Unclear if his has been prescribed to him. He puportedly purchased a concentrator on [employer] (3) Elevated troponin Comment: Suspect type 2 offered inpatient stress but declined will need outpatient stress if agreeable ASA hold beta thom with history of asthma (4) Sepsis Comment: severe sepsis 2/2 pneumonia - conitnue ceftriaxone and azithromycin Bcx NGTD (5) DVT prophylaxis Comment: Heparin SQ Status and Disposition: inpatient
[2019-10-23] MEDS: [UNRECOGNIZED DRUG - OTHER] PO PRN (02:00)
[2019-10-23] MEDS ORDERED: Senna TAB 8.6 mg* TAB PO PRN (04:18)
[2019-10-23] MEDS: cefTRIAXone(*) 1 GM in NS 0.9% 50 ML* 50 ML IVPB SCH (04:59)
[2019-10-23 05:00] LABS: ABS Lymphocytes 1.2 10^3/ul (1.0-4.8); ABS Monocytes 1.2 10^3/ul (0-0.8); ABS Neutrophils 17.8 10^3/ul (1.5-7.7); Hematocrit 48 % (42-52); Mean Corpuscular HGB Conc 33 g/dL (31-36); Mean Corpuscular Hemoglobin 29 pg (27-31); Mean Corpuscular Volume 88 fL (80-94); Platelet Count 271 10^3/uL (150-450); Red Blood Count 5.51 10^6 /uL (4.18-5.48); Red Cell Distribution Width 16 % (10-15); White Blood Count 20.3 10^3/uL (3.5-10.8)
[2019-10-23 05:10] LABS: INR 1.25 (0.82-1.09)
[2019-10-23] MEDS: Heparin VIAL(*) 5000 UNITS/ML VIAL (FIVE THOUSAND) SUBCUT SCH ×3 (05:10→20:49)
[2019-10-23 05:14] LABS: Calcium 8.9 mg/dL (8.6-10.3); Potassium 4.1 mmol/L (3.5-5.0)
[2019-10-23 05:20] LABS: BUN/Creatinine Ratio 36.7 (8-20); EGFR African American 163.1 (>60); EGFR Non-African American 134.8 (>60)
[2019-10-23] MEDS: Azithromycin 500 mg/250 ml NS 500 MG/250 ML BAG IVPB SCH (05:56)
[2019-10-23] MEDS: FLUTICASONE INH SCH ×3 (08:39→19:49)
[2019-10-23] MEDS: SALMETEROL INH SCH ×3 (08:39→19:49)
[2019-10-23] MEDS: Aspirin 81 mg CHEW TAB* 81 MG TAB.CHEW PO SCH (09:48)
[2019-10-23] MEDS: Docusate CAP* 100 MG PO SCH ×2 (09:48→20:48)
[2019-10-23] MEDS ORDERED: Magnesium CITRATE* 300 ML BTL PO ONE (12:00)
--- NOTE | 2019-10-23 17:51 | PN ---
Subjective Date of Service: 10/23/19 Interval History: Still 10 L oxygen with facemask +cough but better sob Family History: Unchanged from Admission Social History: Unchanged from Admission Past Medical History: Unchanged from Admission Objective Active Medications: Acetaminophen (Tylenol Tab*) 650 mg PO Q4H PRN PRN Reason: PAIN - MILD Albuterol/Ipratropium (Duoneb (Albuterol 2.5 Mg/Ipratropium 0.5 Mg)) 1 neb INH [id number] AWAKE PRN PRN Reason: sob/wheexing Last Admin: 10/21/19 10:45 Dose: 1 neb Aspirin (Aspirin 81 Mg Chew Tab*) 81 mg PO DAILY [facility] Last Admin: 10/23/19 09:48 Dose: 81 mg Docusate Sodium (Colace Cap*) 100 mg PO BID [facility] Last Admin: 10/23/19 09:48 Dose: Not Given Heparin Sodium (Porcine) (Heparin Vial(*)) 5,000 units SUBCUT Q8HR [facility] Last Admin: 10/23/19 12:59 Dose: Not Given Azithromycin (Zithromax 500 Mg/250 Ml) 500 mg in 250 mls @ 250 mls/hr IVPB Q24H [facility] Last Admin: 10/23/19 05:56 Dose: 250 mls/hr Ceftriaxone Sodium 1 gm/ (Sodium Chloride) 50 mls @ 100 mls/hr IVPB Q24H [facility] Last Admin: 10/23/19 04:59 Dose: 100 mls/hr Pto: Salbutamol (Inhalation 100 Mcg) 100 mcg PO Q4HR PRN PRN Reason: SHORTNESS OF BREATH Last Admin: 10/23/19 02:00 Dose: 100 mcg Pto: Seroflo ( Fluticasone 125mcg/Salmeterol 25mcg) 2 dose INH BID [facility] Last Admin: 10/23/19 08:39 Dose: 1 dose Ondansetron HCl (Zofran Inj*) 4 mg IV Q4H PRN PRN Reason: NAUSEA/VOMITING Senna (Senokot 8.6 Mg Tab*) 2 tab PO BEDTIME PRN PRN Reason: CONSTIPATION Last Admin: 10/23/19 04:59 Dose: 2 tab Vital Signs - 8 hr 10/23/19 11:15 Temperature 98.0 F Pulse Rate 79 Respiratory 18 Rate Blood Pressure 128/77 (mmHg) O2 Sat by Pulse 97 Oximetry Oxygen Devices in Use Now: OxyMask Appearance: NAD Eyes: No Scleral Icterus, PERRLA Ears/Nose/Mouth/Throat: NL Teeth, Lips, Gums, Mucous Membranes Moist Neck: NL Appearance and Movements; NL JVP Respiratory: Symmetrical Chest Expansion and Respiratory Effort, Clear to Auscultation Cardiovascular: RRR Abdominal: NL Sounds; No Tenderness; No Distention, No Hepatosplenomegaly Lymphatic: No Cervical Adenopathy Extremities: No Edema Neurological: Alert and Oriented x 3 Result Diagrams: 10/23/19 04:42 10/23/19 04:42 Microbiology and Other Data: Microbiology 10/21/19 04:00 Aerobic Blood Culture - Preliminary Blood Venous No Growth Day 1 Anaerobic Blood Culture - Preliminary No Growth Day 1 10/21/19 03:59 Aerobic Blood Culture - Preliminary Blood Venous No Growth Day 1 Anaerobic Blood Culture - Preliminary No Growth Day 1 10/21/19 14:03 Legionella Urinary Antigen - Final Urine Negative Legionella Antigen Streptococcus pneumoniae Ag Screen - Final Negative S. pneumo Antigen Assess/Plan/Problems-Billing Assessment: 64 yo Male with PMHx significant for asthma, diabetes 2 controlled with diet and no medication presented with SOB/cough - Patient Problems (1) Pneumonia Comment: CTX/azithro trend WBC improving (2) Chronic respiratory failure with hypoxia Comment: uses between 3-6 L oxygen at home. Unclear if his has been prescribed to him. He puportedly purchased a concentrator on [address] (3) Elevated troponin Comment: Suspect type 2 offered inpatient stress but declined will need outpatient stress ASA hold beta thom with history of asthma (4) Sepsis Comment: severe sepsis 2/2 pneumonia - conitnue ceftriaxone and azithromycin Bcx NGTD (5) DVT prophylaxis Comment: Heparin SQ Status and Disposition: inpatient
[2019-10-24] MEDS: cefTRIAXone(*) 1 GM in NS 0.9% 50 ML* 50 ML IVPB SCH (05:26)
[2019-10-24] MEDS: Heparin VIAL(*) 5000 UNITS/ML VIAL (FIVE THOUSAND) SUBCUT SCH ×3 (05:29→20:12)
[2019-10-24] MEDS: Azithromycin 500 mg/250 ml NS 500 MG/250 ML BAG IVPB SCH (06:09)
[2019-10-24 07:23] LABS: ABS Eosinophils 0.1 10^3/ul (0-0.6); ABS Lymphocytes 1.5 10^3/ul (1.0-4.8); ABS Monocytes 1.2 10^3/ul (0-0.8); ABS Neutrophils 8.2 10^3/ul (1.5-7.7); Eosinophil % 0.9 %; Hematocrit 49 % (42-52); Hemoglobin 16.6 g/dL (14.0-18.0); Lymphocyte % 13.6 %; Mean Corpuscular HGB Conc 34 g/dL (31-36); Mean Corpuscular Hemoglobin 30 pg (27-31); Mean Corpuscular Volume 88 fL (80-94); Mean Platelet Volume 8.5 fL (7.4-10.4); Nucleated Red Blood Cells % 0.1; Platelet Count 246 10^3/uL (150-450); Red Blood Count 5.56 10^6 /uL (4.18-5.48); Red Cell Distribution Width 16 % (10-15)
[2019-10-24 07:40] LABS: BUN/Creatinine Ratio 28.6 (8-20); Calcium 8.5 mg/dL (8.6-10.3); EGFR African American 154.2 (>60); EGFR Non-African American 127.4 (>60); Potassium 4.1 mmol/L (3.5-5.0)
[2019-10-24] MEDS: Docusate CAP* 100 MG PO SCH ×2 (08:18→20:12)
[2019-10-24] MEDS: Aspirin 81 mg CHEW TAB* 81 MG TAB.CHEW PO SCH (08:18)
[2019-10-24] MEDS: FLUTICASONE INH SCH ×2 (09:55→21:16)
[2019-10-24] MEDS: SALMETEROL INH SCH ×2 (09:55→21:16)
--- NOTE | 2019-10-24 16:48 | PN ---
Subjective Date of Service: 10/24/19 Interval History: On 10 L facemask Usually uses 3 L NC at home +cough but improving Uneventful BM yesterday with mag citrate Ambulating limited distances Family History: Unchanged from Admission Social History: Unchanged from Admission Past Medical History: Unchanged from Admission Objective Active Medications: Acetaminophen (Tylenol Tab*) 650 mg PO Q4H PRN PRN Reason: PAIN - MILD Albuterol/Ipratropium (Duoneb (Albuterol 2.5 Mg/Ipratropium 0.5 Mg)) 1 neb INH [id number] AWAKE PRN PRN Reason: sob/wheexing Last Admin: 10/21/19 10:45 Dose: 1 neb Aspirin (Aspirin 81 Mg Chew Tab*) 81 mg PO DAILY [facility] Last Admin: 10/24/19 08:18 Dose: 81 mg Docusate Sodium (Colace Cap*) 100 mg PO BID [facility] Last Admin: 10/24/19 08:18 Dose: Not Given Heparin Sodium (Porcine) (Heparin Vial(*)) 5,000 units SUBCUT Q8HR [facility] Last Admin: 10/24/19 12:40 Dose: Not Given Azithromycin (Zithromax 500 Mg/250 Ml) 500 mg in 250 mls @ 250 mls/hr IVPB Q24H [facility] Last Admin: 10/24/19 06:09 Dose: 250 mls/hr Ceftriaxone Sodium 1 gm/ (Sodium Chloride) 50 mls @ 100 mls/hr IVPB Q24H [facility] Last Admin: 10/24/19 05:26 Dose: 100 mls/hr Pto: Salbutamol (Inhalation 100 Mcg) 100 mcg PO Q4HR PRN PRN Reason: SHORTNESS OF BREATH Last Admin: 10/23/19 02:00 Dose: 100 mcg Pto: Seroflo ( Fluticasone 125mcg/Salmeterol 25mcg) 2 dose INH BID [facility] Last Admin: 10/24/19 09:55 Dose: 2 dose Ondansetron HCl (Zofran Inj*) 4 mg IV Q4H PRN PRN Reason: NAUSEA/VOMITING Senna (Senokot 8.6 Mg Tab*) 2 tab PO BEDTIME PRN PRN Reason: CONSTIPATION Last Admin: 10/23/19 04:59 Dose: 2 tab Vital Signs - 8 hr 10/24/19 10/24/19 10:02 11:15 Temperature 97.4 F Pulse Rate 95 86 Respiratory 20 20 Rate Blood Pressure 140/77 (mmHg) O2 Sat by Pulse 88 94 Oximetry Oxygen Devices in Use Now: Simple Face Mask - 10L Appearance: NAD Eyes: No Scleral Icterus, PERRLA Ears/Nose/Mouth/Throat: NL Teeth, Lips, Gums, Clear Oropharnyx Neck: NL Appearance and Movements; NL JVP, Trachea Midline Respiratory: Symmetrical Chest Expansion and Respiratory Effort, - - decreased in left base, faint wheeze right base, no rhonchi/rales Cardiovascular: RRR Abdominal: NL Sounds; No Tenderness; No Distention, No Hepatosplenomegaly Lymphatic: No Cervical Adenopathy Extremities: No Edema Neurological: Alert and Oriented x 3 Result Diagrams: 10/24/19 07:13 10/24/19 07:13 Microbiology and Other Data: Microbiology 10/21/19 04:00 Aerobic Blood Culture - Preliminary Blood Venous No Growth Day 1 Anaerobic Blood Culture - Preliminary No Growth Day 1 10/21/19 03:59 Aerobic Blood Culture - Preliminary Blood Venous No Growth Day 1 Anaerobic Blood Culture - Preliminary No Growth Day 1 10/21/19 14:03 Legionella Urinary Antigen - Final Urine Negative Legionella Antigen Streptococcus pneumoniae Ag Screen - Final Negative S. pneumo Antigen Assess/Plan/Problems-Billing Assessment: 64 yo Male with PMHx significant for asthma, diabetes 2 controlled with diet and no medication presented with SOB/cough found with PNA - Patient Problems (1) Pneumonia Comment: Large in left bases, smaller in right base causing hypoxic resp failure usually on 3L oxygen at home although unclear why or what is the underlying dx that he requires 3L. He purchased his concentrator on [employer] CTX/azithro trend WBC (improving) improving (2) Chronic respiratory failure with hypoxia Comment: uses between 3L oxygen at home. Unclear if his has been prescribed to him. (3) Elevated troponin Comment: Suspect type 2 offered inpatient stress but declined will need outpatient stress ASA hold beta thom with history of asthma (4) Sepsis Comment: severe sepsis 2/2 pneumonia c/w ceftriaxone and azithromycin Bcx NGTD (5) DVT prophylaxis Comment: Heparin SQ Status and Disposition: inpatient
[2019-10-25] MEDS: cefTRIAXone(*) 1 GM in NS 0.9% 50 ML* 50 ML IVPB SCH (06:32)
[2019-10-25] MEDS: Heparin VIAL(*) 5000 UNITS/ML VIAL (FIVE THOUSAND) SUBCUT SCH ×3 (06:33→20:42)
[2019-10-25 06:44] LABS: ABS Eosinophils 0.2 10^3/ul (0-0.6); ABS Lymphocytes 1.3 10^3/ul (1.0-4.8); ABS Monocytes 1.1 10^3/ul (0-0.8); ABS Neutrophils 7.1 10^3/ul (1.5-7.7); Eosinophil % 1.8 %; Hematocrit 50 % (42-52); Lymphocyte % 13.4 %; Mean Corpuscular HGB Conc 34 g/dL (31-36); Mean Corpuscular Hemoglobin 30 pg (27-31); Mean Corpuscular Volume 87 fL (80-94); Nucleated Red Blood Cells % 0.1; Platelet Count 267 10^3/uL (150-450); Red Blood Count 5.71 10^6 /uL (4.18-5.48); Red Cell Distribution Width 16 % (10-15); White Blood Count 9.7 10^3/uL (3.5-10.8)
[2019-10-25] MEDS: Azithromycin 500 mg/250 ml NS 500 MG/250 ML BAG IVPB SCH (07:20)
[2019-10-25] MEDS: FLUTICASONE INH SCH ×3 (09:33→22:11)
[2019-10-25] MEDS: Aspirin 81 mg CHEW TAB* 81 MG TAB.CHEW PO SCH (09:33)
[2019-10-25] MEDS: Docusate CAP* 100 MG PO SCH ×3 (09:33→20:42)
[2019-10-25] MEDS: SALMETEROL INH SCH ×3 (09:33→22:11)
--- NOTE | 2019-10-25 14:20 | PN ---
Subjective Date of Service: 10/25/19 Interval History: Patient has continued productive cough. He is ambulatory, eating OK. No dyspnea at rest. Wants to shower. He has home O2 concentrator, can go up to 5.5L Family History: Unchanged from Admission Social History: Unchanged from Admission Past Medical History: Unchanged from Admission Objective Active Medications: Acetaminophen (Tylenol Tab*) 650 mg PO Q4H PRN PRN Reason: PAIN - MILD Albuterol/Ipratropium (Duoneb (Albuterol 2.5 Mg/Ipratropium 0.5 Mg)) 1 neb INH [id number] AWAKE PRN PRN Reason: sob/wheexing Last Admin: 10/21/19 10:45 Dose: 1 neb Aspirin (Aspirin 81 Mg Chew Tab*) 81 mg PO DAILY [facility] Last Admin: 10/25/19 09:33 Dose: 81 mg Docusate Sodium (Colace Cap*) 100 mg PO BID [facility] Last Admin: 10/25/19 09:35 Dose: Not Given Heparin Sodium (Porcine) (Heparin Vial(*)) 5,000 units SUBCUT Q8HR [facility] Last Admin: 10/25/19 12:20 Dose: Not Given Azithromycin (Zithromax 500 Mg/250 Ml) 500 mg in 250 mls @ 250 mls/hr IVPB Q24H [facility] Last Admin: 10/25/19 07:20 Dose: 250 mls/hr Ceftriaxone Sodium 1 gm/ (Sodium Chloride) 50 mls @ 100 mls/hr IVPB Q24H [facility] Last Admin: 10/25/19 06:32 Dose: 100 mls/hr Pto: Salbutamol (Inhalation 100 Mcg) 100 mcg PO Q4HR PRN PRN Reason: SHORTNESS OF BREATH Last Admin: 10/23/19 02:00 Dose: 100 mcg Pto: Seroflo ( Fluticasone 125mcg/Salmeterol 25mcg) 2 dose INH BID [facility] Last Admin: 10/25/19 09:33 Dose: 2 dose Ondansetron HCl (Zofran Inj*) 4 mg IV Q4H PRN PRN Reason: NAUSEA/VOMITING Senna (Senokot 8.6 Mg Tab*) 2 tab PO BEDTIME PRN PRN Reason: CONSTIPATION Last Admin: 10/23/19 04:59 Dose: 2 tab Vital Signs - 8 hr 10/25/19 10/25/19 10/25/19 06:26 07:15 11:15 Temperature 36.9 C 36.8 C Pulse Rate 85 86 Respiratory 20 18 20 Rate Blood Pressure 135/80 135/82 (mmHg) O2 Sat by Pulse 93 92 Oximetry Oxygen Devices in Use Now: OxyMask - 6L/radha Appearance: alert, no distress Eyes: No Scleral Icterus Ears/Nose/Mouth/Throat: NL Teeth, Lips, Gums, Clear Oropharnyx Neck: NL Appearance and Movements; NL JVP Respiratory: Symmetrical Chest Expansion and Respiratory Effort, - - rales at bases bilat Abdominal: NL Sounds; No Tenderness; No Distention Extremities: - - 1+ pitting edema on shins Neurological: Alert and Oriented x 3 Lines/Tubes/Other Access: Clean, Dry and Intact Peripheral IV Nutrition: Taking PO's Result Diagrams: 10/25/19 06:07 10/24/19 07:13 Microbiology and Other Data: Microbiology 10/23/19 00:00 Sputum Gram Stain - Final 10/23/19 00:00 Sputum Sputum Culture - Final Normal Mandy 10/21/19 14:03 Urine Legionella Urinary Antigen - Final 10/21/19 14:03 Urine Streptococcus pneumoniae Ag Screen - Final Negative Legionella Antigen Negative S. pneumo Antigen 10/21/19 04:00 Blood Venous Aerobic Blood Culture - Preliminary 10/21/19 04:00 Blood Venous Anaerobic Blood Culture - Preliminary No Growth Day 4 No Growth Day 4 10/21/19 03:59 Blood Venous Aerobic Blood Culture - Preliminary 10/21/19 03:59 Blood Venous Anaerobic Blood Culture - Preliminary No Growth Day 4 No Growth Day 4 Assess/Plan/Problems-Billing Assessment: 64 yo Male with PMHx significant for asthma, diabetes 2 controlled with diet and no medication presented with SOB/cough found with PNA - Patient Problems (1) Pneumonia Current Visit: Yes Status: Acute Priority: High Code(s): J18.9 - PNEUMONIA , UNSPECIFIED ORGANISM SNOMED Code(s): 115374394 Comment: -multilobar causing hypoxic respiratory failure -improving on ceftriaxone, azithromycin -cultures not illuminating (2) Asthma exacerbation attacks Current Visit: Yes Status: Acute Priority: Medium Comment: -Duonebs as needed for SOB/wheezing - continue home inhalers - o2 as needed (3) Type 2 diabetes mellitus Current Visit: Yes Status: Acute Priority: Medium Comment: -Diet controlled. -No need for FSBG (4) DVT prophylaxis Current Visit: Yes Status: Acute Priority: Medium Code(s): Z29.9 - ENCOUNTER FOR PROPHYLACTIC MEASURES, UNSPECIFIED SNOMED Code(s): 986700191 Comment: Heparin SQ Status and Disposition: inpatient
[2019-10-26] MEDS: Heparin VIAL(*) 5000 UNITS/ML VIAL (FIVE THOUSAND) SUBCUT SCH ×3 (04:57→20:42)
[2019-10-26] MEDS: cefTRIAXone(*) 1 GM in NS 0.9% 50 ML* 50 ML IVPB SCH (06:25)
[2019-10-26] MEDS: Azithromycin 500 mg/250 ml NS 500 MG/250 ML BAG IVPB SCH (08:55)
[2019-10-26] MEDS: Docusate CAP* 100 MG PO SCH ×2 (09:11→20:42)
[2019-10-26] MEDS: Aspirin 81 mg CHEW TAB* 81 MG TAB.CHEW PO SCH (09:11)
[2019-10-26] MEDS: SALMETEROL INH SCH ×2 (09:13→20:36)
[2019-10-26] MEDS: FLUTICASONE INH SCH ×2 (09:13→20:36)
--- NOTE | 2019-10-26 11:21 | PN ---
Subjective Date of Service: 10/26/19 Interval History: Patient coughing when using incentive spirometer. He feels breathing is OK. O2 weaned down to 6L/min. He has home concentrator that can generate 5.5 L/min Family History: Unchanged from Admission Social History: Unchanged from Admission Past Medical History: Unchanged from Admission Objective Active Medications: Acetaminophen (Tylenol Tab*) 650 mg PO Q4H PRN PRN Reason: PAIN - MILD Albuterol/Ipratropium (Duoneb (Albuterol 2.5 Mg/Ipratropium 0.5 Mg)) 1 neb INH [id number] AWAKE PRN PRN Reason: sob/wheexing Last Admin: 10/21/19 10:45 Dose: 1 neb Aspirin (Aspirin 81 Mg Chew Tab*) 81 mg PO DAILY [facility] Last Admin: 10/26/19 09:11 Dose: 81 mg Docusate Sodium (Colace Cap*) 100 mg PO BID [facility] Last Admin: 10/26/19 09:11 Dose: Not Given Heparin Sodium (Porcine) (Heparin Vial(*)) 5,000 units SUBCUT Q8HR [facility] Last Admin: 10/26/19 04:57 Dose: Not Given Azithromycin (Zithromax 500 Mg/250 Ml) 500 mg in 250 mls @ 250 mls/hr IVPB Q24H [facility] Last Admin: 10/26/19 08:55 Dose: 250 mls/hr Ceftriaxone Sodium 1 gm/ (Sodium Chloride) 50 mls @ 100 mls/hr IVPB Q24H [facility] Last Admin: 10/26/19 06:25 Dose: 100 mls/hr Pto: Salbutamol (Inhalation 100 Mcg) 100 mcg PO Q4HR PRN PRN Reason: SHORTNESS OF BREATH Last Admin: 10/23/19 02:00 Dose: 100 mcg Pto: Seroflo ( Fluticasone 125mcg/Salmeterol 25mcg) 2 dose INH BID [facility] Last Admin: 10/26/19 09:13 Dose: 2 dose Ondansetron HCl (Zofran Inj*) 4 mg IV Q4H PRN PRN Reason: NAUSEA/VOMITING Senna (Senokot 8.6 Mg Tab*) 2 tab PO BEDTIME PRN PRN Reason: CONSTIPATION Last Admin: 10/23/19 04:59 Dose: 2 tab Vital Signs - 8 hr 10/26/19 10/26/19 07:15 08:00 Temperature 36.8 C Pulse Rate 83 Respiratory 20 18 Rate Blood Pressure 131/74 (mmHg) O2 Sat by Pulse 90 Oximetry Oxygen Devices in Use Now: OxyMask Appearance: alert, no distress Ears/Nose/Mouth/Throat: Clear Oropharnyx Neck: No Thyroid Enlargement, Masses Respiratory: Symmetrical Chest Expansion and Respiratory Effort, - - diminished throughout Cardiovascular: NL Sounds; No Murmurs; No JVD, RRR Abdominal: NL Sounds; No Tenderness; No Distention Neurological: Alert and Oriented x 3 Lines/Tubes/Other Access: Clean, Dry and Intact Peripheral IV Nutrition: Taking PO's Result Diagrams: 10/25/19 06:07 10/24/19 07:13 Additional Lab and Data: Microbiology 10/23/19 00:00 Sputum Gram Stain - Final 10/23/19 00:00 Sputum Sputum Culture - Final Normal Mandy 10/21/19 14:03 Urine Legionella Urinary Antigen - Final 10/21/19 14:03 Urine Streptococcus pneumoniae Ag Screen - Final Negative Legionella Antigen Negative S. pneumo Antigen 10/21/19 04:00 Blood Venous Aerobic Blood Culture - Final 10/21/19 04:00 Blood Venous Anaerobic Blood Culture - Final No Growth Day 5 No Growth Day 5 10/21/19 03:59 Blood Venous Aerobic Blood Culture - Final 10/21/19 03:59 Blood Venous Anaerobic Blood Culture - Final No Growth Day 5 No Growth Day 5 Assess/Plan/Problems-Billing Assessment: 64 yo Male with PMHx significant for asthma, diabetes 2 controlled with diet and no medication presented with SOB/cough found with PNA - Patient Problems (1) Pneumonia Current Visit: Yes Status: Acute Priority: High Code(s): J18.9 - PNEUMONIA , UNSPECIFIED ORGANISM SNOMED Code(s): 143024666 Comment: -multilobar causing hypoxic respiratory failure -improving on ceftriaxone, azithromycin -cultures not illuminating (2) Asthma exacerbation attacks Current Visit: Yes Status: Acute Priority: Medium Comment: - Duonebs as needed for SOB/wheezing - continue home inhalers - Can tolerate O2sat around 90%, can go home when sustaining O2sat on5.5L (3) Type 2 diabetes mellitus Current Visit: Yes Status: Acute Priority: Medium Comment: -Diet controlled. -No need for FSBG (4) DVT prophylaxis Current Visit: Yes Status: Acute Priority: Medium Code(s): Z29.9 - ENCOUNTER FOR PROPHYLACTIC MEASURES, UNSPECIFIED SNOMED Code(s): 344593566 Comment: Heparin SQ Status and Disposition: inpatient
[2019-10-27] MEDS: Heparin VIAL(*) 5000 UNITS/ML VIAL (FIVE THOUSAND) SUBCUT SCH (05:12)
[2019-10-27] MEDS: cefTRIAXone(*) 1 GM in NS 0.9% 50 ML* 50 ML IVPB SCH (05:13)
[2019-10-27] MEDS: Azithromycin 500 mg/250 ml NS 500 MG/250 ML BAG IVPB SCH (05:58)
[2019-10-27] MEDS: Aspirin 81 mg CHEW TAB* 81 MG TAB.CHEW PO SCH (07:56)
[2019-10-27] MEDS: Docusate CAP* 100 MG PO SCH (07:56)
[2019-10-27] MEDS: SALMETEROL INH SCH ×2 (08:24→08:25)
[2019-10-27] MEDS: FLUTICASONE INH SCH ×2 (08:24→08:25)
[2019-10-27 11:21] VITALS: BP 108/70
--- NOTE | 2019-10-28 21:47 | DS ---
CC: Dr. Moore * DISCHARGE SUMMARY: DATE OF ADMISSION: 10/21/19 DATE OF DISCHARGE: 10/27/19 PRIMARY DIAGNOSIS: Hypoxic respiratory failure, [id number]. SECONDARY DIAGNOSES: 1. Asthma exacerbation. 2. Diastolic heart failure. 3. Bilateral lower lobe and right middle lobe infiltrate, likely pneumonia. 4. Morbid obesity. 5. Type 2 diabetes, diet control. 6. Sepsis due to bilateral pneumonia. 7. Elevated troponin due to demand ischemia. 8. Nonalcoholic steatohepatitis with normal liver enzymes. MEDICATIONS: On discharge: 1. Acetaminophen as needed. 2. Albuterol ipratropium nebulizer 4 times a day p.r.n. wheezing. 3. Ceftriaxone 500 mg p.o. b.i.d. for 3 days. 4. Docusate 100 mg p.o. b.i.d. p.r.n. constipation. 5. Salbutamol inhalation q.4 hours as needed for wheezing. 6. Senna 2 tabs p.o. q.p.m. 7. Lung Essentials 1 g p.o. t.i.d. 8. Raw Lung Glandular 250 mg p.o. daily. 9. Salmeterol and fluticasone propionate inhaler 2 puffs b.i.d. (the patient obtained from internet). CONSULTATIONS: Dr. Mcnamara of Cardiology. PROCEDURES: None. COMPLICATIONS: None. HOSPITAL COURSE: A 64-year-old man with chronic asthma and respiratory failure requiring home O2 presented with persistent worsening cough and dyspnea. Chest x-ray showed bilateral infiltrates at the bases as well as right middle lobe infiltrates. There was concern about heart failure and cardiac ischemia. Initial troponin was 0.24, which fell to 0.10. The EKG showed sinus tachycardia with nonspecific T-wave abnormalities. The next day, his EKG continued to show T-wave inversions in V2 through V4. Heart rate of 95. Cardiology consultation, Dr. Mcnamara and Carmen, nurse practitioner advised troponin elevation was most likely due to demand ischemia but outpatient stress testing would be advisable. The patient had echocardiogram that showed ejection fraction of 50% to 55% and diastolic dysfunction. The Cardiology recommended adding a diuretic if he develops peripheral edema, but his blood pressure did not require this. There was concern that he has hepatic congestion with elevated INR that could be due to nonalcoholic steatohepatitis as well. The patient declined chemical stress test but he might be sent to a treadmill test as an outpatient. Cardiology recommended aggressive medical management for presumed underlying coronary artery disease including blood pressure control, cholesterol control, etc. The patient's pneumonia was treated with ceftriaxone and azithromycin intravenously. He had a slow but steady improvement in his oxygenation and other symptomatology. At home, he has a concentrator that goes up to 5.5 L per minute and he was weaned down to 5 L per minute prior to discharge. He can finish up a week of cephalosporins as outpatient. His blood cultures were negative after 5 days. Urine, Legionella, and streptococcal antigens were negative. Gram stain grew only normal aaron. LABORATORY DATA: Lab test pertinent, on admission, the patient's white count was 33.9 which fell to 9.7 upon discharge. His INR was elevated at 1.8 on admission which fell to 1.25 on day 2. His initial venous blood gas show pH of 7.31, PCO2 of 54, PO2 of 96, which was not particularly helpful. Hemoglobin A1c assessed with controlled diabetes showed 6.2% consistent with good diet control. BNP was elevated at 481 consistent with diastolic heart failure. Elevated cholesterol 41. TSH was 0.51. Urinalysis is negative. Influenza A and B are negative. DISPOSITION: To home. ACTIVITY: As tolerated. STATUS: Inpatient. CONDITION: Good. DIET: Diabetic diet, low salt. FOLLOWUP: With Dr. Moore, primary care within 1 week. TIME SPENT: I spent more than 45 minutes with the patient on the day of discharge and completing necessary paperwork. [id number]/CPS #: [id number] MTDD
== END 2019-10-27 13:30 | disposition home or self-care (01) | DRG 871 ==
LOC: ED 02:53 → MEDTELE 06:12
PROVIDERS: ADMIT Family Medicine; ATTEND Internal Medicine
DX: A41.9 Sepsis, unspecified organism (principal); J96.21 Acute and chronic respiratory failure with hypoxia; J18.9 Pneumonia, unspecified organism; I24.8 Other forms of acute ischemic heart disease; I50.30 Unspecified diastolic (congestive) heart failure; J45.41 Moderate persistent asthma with (acute) exacerbation; I95.9 Hypotension, unspecified; R00.0 Tachycardia, unspecified; E11.9 Type 2 diabetes mellitus without complications; E66.01 Morbid (severe) obesity due to excess calories; R74.8 Abnormal levels of other serum enzymes; R79.1 Abnormal coagulation profile; K75.81 Nonalcoholic steatohepatitis (NASH); Z68.39 Body mass index [BMI] 39.0-39.9, adult; Z99.81 Dependence on supplemental oxygen; Z81.1 Family history of alcohol abuse and dependence; Z81.2 Family history of tobacco abuse and dependence; Z80.1 Family history of malignant neoplasm of trachea, bronchus and lung; Z80.8 Family history of malignant neoplasm of other organs or systems; Z79.899 Other long term (current) drug therapy
CPT/HCPCS: 36415; 71045; 71275; 80048; 80061; 80076; 81003; 82803; 83036; 83605; 83880; 84443; 84484; 85025; 85610; 85730; 86140; 87040; 87070; 87205; 87899; 93005; 93306; 94640; 96365; 96375; 99284; A9270-GY; J0456; J0696; J1100; J1644; J3475; Q9967

== ENCOUNTER 2024-03-08 02:10 | Inpatient (IN) ==
[2024-03-08 03:48] LABS: ABS Basophils 0.1 10^3/uL (0.0-0.1); ABS Eosinophils 0.1 10^3/uL (0.0-0.5); ABS Lymphocytes 0.7 10^3/uL (1.0-4.8); ABS Monocytes 0.7 10^3/uL (0.0-1.1); ABS Neutrophils 11.9 10^3/uL (1.5-7.6); ABS Nucleated RBC 0.06 10^3/ul; Hematocrit 55.2 % (38-53); Hemoglobin 18.7 g/dL (13.2-16.3); Lymphocyte % 4.9 %; Mean Corpuscular Hemoglobin 30.8 pg (27-33); Mean Corpuscular Hgb Conc 33.8 g/dL (31-36); Mean Corpuscular Volume 91.1 fL (80-97); Mean Platelet Volume 10.1 fL (7.5-11.2); Nucleated Red Blood Cells % 0.4 %/100WBC (0.0-0.8); Platelet Count 160 10^3/uL (150-450); Red Blood Count 6.06 10^6/uL (4.06-5.63); Red Cell Distribution Width 14.4 % (12-17); White Blood Count 13.5 10^3/uL (3.6-10.2)
[2024-03-08 03:52] LABS: Albumin 4.3 g/dL (3.2-5.2); Calcium 8.8 mg/dL (8.6-10.3); Creatinine, Serum 0.71 mg/dL (0.67-1.17); Globulin 2.2 g/dL (2-4); Potassium 3.9 mmol/L (3.5-5.0); Total Protein 6.5 g/dL (6.4-8.9); eGFR CKD-EPI 98.7 (>60)
[2024-03-08] MEDS: cefTRIAXone 1 gm/50 mL D5W 1 GM/50 ML BAG IV ONE (03:53)
[2024-03-08] MEDS: Azithromycin 500 mg/250 ml NS 500 MG/250 ML BAG IVPB ONE (03:57)
[2024-03-08 04:32] LABS: High Sensitivity Troponin 1 Hr 9 pg/mL (<20)
[2024-03-08] MEDS ORDERED: Polyethylene Glycol 3350 17 GM PACKET PO PRN (05:19)
[2024-03-08] MEDS ORDERED: Al Hydrox/Mg Hydrox/Simet LIQ 30 ML UDC PO PRN (05:19)
[2024-03-08] MEDS ORDERED: Dextrose 50% Syringe 50 ml 25 GM/50 ML SYRINGE IV PUSH PRN (05:45)
[2024-03-08] MEDS: Heparin 5000 UNITS/ML 1 mL VIAL SUBCUT SCH (06:05)
[2024-03-08] MEDS: methylPREDNISolone SOD SUCC 40 mg/ml 1 ml VIAL IV SCH (06:05)
[2024-03-08] MEDS: Albuterol/Ipratropium NEB.SOL (2.5/0.5 MG) 3 ML NEB.SOLN INH PRN (07:32)
[2024-03-08] MEDS: Albuterol HFA INHALER 8 gm MDI INH PRN (13:46)
[2024-03-08] MEDS: Mometasone/Formoter 100/5 MDI INH SCH (20:11)
[2024-03-09 05:04] LABS: ABS Lymphocytes 0.7 10^3/uL (1.0-4.8); ABS Monocytes 0.4 10^3/uL (0.0-1.1); ABS Neutrophils 17.7 10^3/uL (1.5-7.6); ABS Nucleated RBC 0.02 10^3/ul; Hematocrit 53.1 % (38-53); Hemoglobin 17.5 g/dL (13.2-16.3); Lymphocyte % 3.9 %; Mean Corpuscular Hemoglobin 30.2 pg (27-33); Mean Corpuscular Volume 91.6 fL (80-97); Mean Platelet Volume 9.7 fL (7.5-11.2); Nucleated Red Blood Cells % 0.1 %/100WBC (0.0-0.8); Platelet Count 181 10^3/uL (150-450); Red Blood Count 5.79 10^6/uL (4.06-5.63); Red Cell Distribution Width 14.7 % (12-17); White Blood Count 18.9 10^3/uL (3.6-10.2)
[2024-03-09] MEDS: cefTRIAXone 1 gm/50 mL D5W 1 GM/50 ML BAG IV SCH (05:46)
[2024-03-09 05:59] LABS: Anion Gap 7 mmol/L (2-16); Blood Urea Nitrogen 13 mg/dL (6-24); CO2 Carbon Dioxide 31 mmol/L (22-32); Calcium 8.5 mg/dL (8.6-10.3); Chloride 103 mmol/L (101-111); Creatinine, Serum 0.65 mg/dL (0.67-1.17); Glucose 158 mg/dL (70-100); Magnesium 1.8 mg/dL (1.9-2.7); Sodium 141 mmol/L (135-145); eGFR CKD-EPI 101.4 (>60)
[2024-03-09] MEDS: Azithromycin 500 mg/250 ml NS 500 MG/250 ML BAG IVPB SCH (06:22)
[2024-03-09 08:58] LABS: Cholesterol 141 mg/dL; HDL Cholesterol 60.8 mg/dL; LDL Cholesterol 70 mg/dL; Triglycerides 51 mg/dL
[2024-03-09] MEDS: Magnesium Sulfate 2 gm BAG 2 GM/50 ML BAG IVPB ONE (08:58)
[2024-03-09] MEDS: Furosemide 40 mg/4 ml IV VIAL IV SLOW PU ONE (10:07)
[2024-03-09] MEDS: Pantoprazole VIAL 40 MG VIAL IV SCH (15:19)
[2024-03-09 16:46] LABS: Venous Bicarbonate HCO3 31.9 mmol/L (24-28)
[2024-03-09 17:33] LABS: Creatinine, Serum 1.22 mg/dL (0.67-1.17); eGFR CKD-EPI 63.8 (>60)
[2024-03-10 04:59] LABS: ABS Lymphocytes 1.2 10^3/uL (1.0-4.8); ABS Neutrophils 17.4 10^3/uL (1.5-7.6); ABS Nucleated RBC 0.02 10^3/ul; Hematocrit 53.5 % (38-53); Hemoglobin 17.4 g/dL (13.2-16.3); Lymphocyte % 5.9 %; Mean Corpuscular Hemoglobin 29.7 pg (27-33); Mean Corpuscular Hgb Conc 32.5 g/dL (31-36); Mean Corpuscular Volume 91.6 fL (80-97); Mean Platelet Volume 10.1 fL (7.5-11.2); Nucleated Red Blood Cells % 0.1 %/100WBC (0.0-0.8); Platelet Count 192 10^3/uL (150-450); Red Blood Count 5.84 10^6/uL (4.06-5.63); Red Cell Distribution Width 14.8 % (12-17); White Blood Count 19.6 10^3/uL (3.6-10.2)
[2024-03-10 05:48] LABS: Calcium 8.7 mg/dL (8.6-10.3); Creatinine, Serum 0.92 mg/dL (0.67-1.17); Potassium 4.2 mmol/L (3.5-5.0); eGFR CKD-EPI 89.5 (>60)
[2024-03-10] MEDS: Sulfur Hexaflouride MICROSPHR 25 MG VIAL IV ONE (08:32)
[2024-03-10] MEDS: methylPREDNISolone SOD SUCC 40 mg/ml 1 ml VIAL IV SCH (08:33)
[2024-03-10] MEDS: Furosemide 40 mg/4 ml IV VIAL IV SLOW PU ONE (08:33)
[2024-03-10] MEDS ORDERED: Sulfur Hexaflouride MICROSPHR 25 MG VIAL ONE (09:34)
[2024-03-11 05:28] LABS: ABS Lymphocytes 1.6 10^3/uL (1.0-4.8); ABS Monocytes 1.1 10^3/uL (0.0-1.1); ABS Neutrophils 10.7 10^3/uL (1.5-7.6); ABS Nucleated RBC 0.01 10^3/ul; Eosinophil % 0.1 %; Hematocrit 54.4 % (38-53); Hemoglobin 17.7 g/dL (13.2-16.3); Lymphocyte % 11.6 %; Mean Corpuscular Hemoglobin 29.8 pg (27-33); Mean Corpuscular Hgb Conc 32.6 g/dL (31-36); Mean Corpuscular Volume 91.5 fL (80-97); Mean Platelet Volume 9.7 fL (7.5-11.2); Nucleated Red Blood Cells % 0.1 %/100WBC (0.0-0.8); Platelet Count 191 10^3/uL (150-450); Red Blood Count 5.95 10^6/uL (4.06-5.63); Red Cell Distribution Width 14.8 % (12-17); White Blood Count 13.5 10^3/uL (3.6-10.2)
[2024-03-11 06:14] LABS: Calcium 9.1 mg/dL (8.6-10.3); Creatinine, Serum 0.89 mg/dL (0.67-1.17); Magnesium 2.1 mg/dL (1.9-2.7); Potassium 3.9 mmol/L (3.5-5.0); eGFR CKD-EPI 92.2 (>60)
[2024-03-11] MEDS: Iodixanol (CONTRAST) 320 MG/ML 100 ML SDV IV ONE (14:29)
[2024-03-12 05:37] LABS: ABS Lymphocytes 1.7 10^3/uL (1.0-4.8); ABS Monocytes 0.9 10^3/uL (0.0-1.1); ABS Nucleated RBC 0.02 10^3/ul; Eosinophil % 0.2 %; Hematocrit 52.5 % (38-53); Hemoglobin 17.7 g/dL (13.2-16.3); Lymphocyte % 17.6 %; Mean Corpuscular Hemoglobin 30.8 pg (27-33); Mean Corpuscular Hgb Conc 33.8 g/dL (31-36); Mean Platelet Volume 9.5 fL (7.5-11.2); Nucleated Red Blood Cells % 0.2 %/100WBC (0.0-0.8); Platelet Count 178 10^3/uL (150-450); Red Blood Count 5.76 10^6/uL (4.06-5.63); Red Cell Distribution Width 14.3 % (12-17); White Blood Count 9.6 10^3/uL (3.6-10.2)
[2024-03-12 05:54] LABS: Calcium 8.1 mg/dL (8.6-10.3); Creatinine, Serum 0.73 mg/dL (0.67-1.17); Magnesium 1.9 mg/dL (1.9-2.7); Potassium 4.2 mmol/L (3.5-5.0); eGFR CKD-EPI 97.9 (>60)
[2024-03-12] MEDS: methylPREDNISolone SOD SUCC 40 mg/ml 1 ml VIAL IV SCH (10:56)
[2024-03-12] MEDS: Furosemide 40 mg/4 ml IV VIAL IV SLOW PU ONE (10:56)
[2024-03-13 04:54] LABS: ABS Lymphocytes 1.9 10^3/uL (1.0-4.8); ABS Monocytes 1.1 10^3/uL (0.0-1.1); ABS Neutrophils 10.3 10^3/uL (1.5-7.6); ABS Nucleated RBC 0.02 10^3/ul; Eosinophil % 0.2 %; Hematocrit 57.4 % (38-53); Lymphocyte % 14.1 %; Mean Corpuscular Hemoglobin 30.1 pg (27-33); Mean Corpuscular Hgb Conc 33.1 g/dL (31-36); Mean Platelet Volume 9.6 fL (7.5-11.2); Nucleated Red Blood Cells % 0.1 %/100WBC (0.0-0.8); Platelet Count 203 10^3/uL (150-450); Red Blood Count 6.31 10^6/uL (4.06-5.63); Red Cell Distribution Width 14.5 % (12-17); White Blood Count 13.3 10^3/uL (3.6-10.2)
[2024-03-13 05:23] LABS: Calcium 9.5 mg/dL (8.6-10.3); Creatinine, Serum 0.8 mg/dL (0.67-1.17); eGFR CKD-EPI 95.2 (>60)
[2024-03-13] MEDS: Furosemide 40 mg/4 ml IV VIAL IV SLOW PU ONE (10:23)
[2024-03-14 07:11] LABS: Albumin 3.9 g/dL (3.2-5.2); Albumin/Globulin Ratio 1.6 (1-3); Calcium 9.2 mg/dL (8.6-10.3); Creatinine, Serum 0.77 mg/dL (0.67-1.17); Globulin 2.4 g/dL (2-4); Magnesium 2.2 mg/dL (1.9-2.7); Potassium 4.1 mmol/L (3.5-5.0); Total Bilirubin 1.3 mg/dL (0.2-1.0); Total Protein 6.3 g/dL (6.4-8.9); eGFR CKD-EPI 96.3 (>60)
[2024-03-14 10:33] LABS: ABS Lymphocytes 1.6 10^3/uL (1.0-4.8); ABS Monocytes 1.2 10^3/uL (0.0-1.1); ABS Neutrophils 11.6 10^3/uL (1.5-7.6); Hematocrit 53.5 % (38-53); Hemoglobin 18.1 g/dL (13.2-16.3); Mean Corpuscular Hemoglobin 30.6 pg (27-33); Mean Corpuscular Hgb Conc 33.8 g/dL (31-36); Mean Corpuscular Volume 90.6 fL (80-97); Mean Platelet Volume 9.8 fL (7.5-11.2); Platelet Count 178 10^3/uL (150-450); Red Cell Distribution Width 13.8 % (12-17); White Blood Count 14.5 10^3/uL (3.6-10.2)
[2024-03-14 10:34] LABS: ABS Nucleated RBC 0.01 10^3/ul; Eosinophil % 0.3 %; Lymphocyte % 10.9 %; Nucleated Red Blood Cells % 0.1 %/100WBC (0.0-0.8)
[2024-03-15 05:08] LABS: ABS Eosinophils 0.1 10^3/uL (0.0-0.5); ABS Lymphocytes 1.9 10^3/uL (1.0-4.8); ABS Monocytes 1.4 10^3/uL (0.0-1.1); ABS Neutrophils 10.9 10^3/uL (1.5-7.6); ABS Nucleated RBC 0.02 10^3/ul; Eosinophil % 0.9 %; Hemoglobin 17.5 g/dL (13.2-16.3); Lymphocyte % 13.5 %; Mean Corpuscular Hemoglobin 30.5 pg (27-33); Mean Corpuscular Hgb Conc 33.6 g/dL (31-36); Mean Corpuscular Volume 90.6 fL (80-97); Mean Platelet Volume 9.9 fL (7.5-11.2); Nucleated Red Blood Cells % 0.2 %/100WBC (0.0-0.8); Platelet Count 173 10^3/uL (150-450); Red Blood Count 5.74 10^6/uL (4.06-5.63); Red Cell Distribution Width 14.1 % (12-17); White Blood Count 14.4 10^3/uL (3.6-10.2)
[2024-03-15 06:49] LABS: Albumin 3.5 g/dL (3.2-5.2); Albumin/Globulin Ratio 1.5 (1-3); Calcium 9.1 mg/dL (8.6-10.3); Creatinine, Serum 0.71 mg/dL (0.67-1.17); Globulin 2.3 g/dL (2-4); Total Bilirubin 1.2 mg/dL (0.2-1.0); Total Protein 5.8 g/dL (6.4-8.9); eGFR CKD-EPI 98.7 (>60)
[2024-03-16 05:26] LABS: ABS Basophils 0.1 10^3/uL (0.0-0.1); ABS Eosinophils 0.1 10^3/uL (0.0-0.5); ABS Lymphocytes 1.9 10^3/uL (1.0-4.8); ABS Monocytes 1.1 10^3/uL (0.0-1.1); ABS Neutrophils 8.6 10^3/uL (1.5-7.6); ABS Nucleated RBC 0.02 10^3/ul; Eosinophil % 0.6 %; Hematocrit 53.7 % (38-53); Hemoglobin 17.6 g/dL (13.2-16.3); Lymphocyte % 16.1 %; Mean Corpuscular Hemoglobin 29.5 pg (27-33); Mean Corpuscular Hgb Conc 32.7 g/dL (31-36); Mean Corpuscular Volume 90.3 fL (80-97); Mean Platelet Volume 10.2 fL (7.5-11.2); Nucleated Red Blood Cells % 0.2 %/100WBC (0.0-0.8); Platelet Count 168 10^3/uL (150-450); Red Blood Count 5.94 10^6/uL (4.06-5.63); Red Cell Distribution Width 14.1 % (12-17); White Blood Count 11.7 10^3/uL (3.6-10.2)
[2024-03-16 06:42] LABS: Albumin 3.5 g/dL (3.2-5.2); Albumin/Globulin Ratio 1.5 (1-3); Calcium 9.1 mg/dL (8.6-10.3); Creatinine, Serum 0.7 mg/dL (0.67-1.17); Globulin 2.4 g/dL (2-4); Magnesium 2.1 mg/dL (1.9-2.7); Potassium 4.4 mmol/L (3.5-5.0); Total Bilirubin 1.1 mg/dL (0.2-1.0); Total Protein 5.9 g/dL (6.4-8.9); eGFR CKD-EPI 99.1 (>60)
[2024-03-16 16:21] VITALS: BP 157/91
== END 2024-03-16 18:16 | disposition left against medical advice (07) | DRG 871 ==
LOC: ED 02:10 → SUATTDRO 05:19 → EDHOLD 05:19 → ICU 07:01 → MED 03-16 16:11
PROVIDERS: ADMIT Internal Medicine; ATTEND Student in an Organized Health Care Education/Training Program